=== PATIENT | female | born 1950 | race Caucasian/White ===

== ENCOUNTER → 2016-06-24 | Outpatient (CLI) | payer MEDICARE ==
[~2016-06-24] MED LIST: ADV250INH INH; FOLI1TAB86 PO; FURO20TA PO; IBUP200C PO; NICO21PAT EXT; NYAM10003 EXT; PRED10TA PO; PRIN10TA PO; SPIRIVA INH; TYLE325T5 PO; VITA100T2 PO; VITACHTA PO
--- NOTE | 2016-06-24 10:23 | REP ---
Abdominal aorta ultrasound: Abdominal Aortic Measurements are as follows: Proximal 2.2 cm AP 3.0 cm TRV Renal Artery Level 3.7 cm AP 2.7 cm TRV Mid Aorta 3.8 cm AP 4.5 cm TRV Distal Aorta 3.9 cm AP 8.2 cm TRV R Iliac Artery 1.6 cm AP 1.9 cm TRV L Iliac Artery 1.5 cm AP 2.4 cm TRV The study is technically difficult because of patient body habitus and interference of the acoustic beam by bowel gas. The patient states she has had an endovascular stent placed. This is difficult to visualize because of patient body habitus. The stent was not present on the comparison CT of 09/27/2014. There is an abdominal aortic aneurysm measuring 3.8 cm AP by 4.5 cm transversely and measuring a craniocaudad length of 9.0 cm. Doppler color flow images were not possible because of patient body habitus and interference from bowel gas. 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 Signed by Lan Hawkins MD 06/24/2016 10:14 A
== END ==
LOC: M RAD 08:24
PROVIDERS: ATTEND Family Medicine
DX: I71.4 Abdominal aortic aneurysm, without rupture (principal)

== ENCOUNTER 2016-07-29 09:56 | Inpatient (IN) | payer MEDICARE ==
[~2016-07-29] VITALS: Ht 157.5 cm; Wt 99.8 kg
[2016-07-29] MEDS ORDERED: CLOP75TA2 (10:14)
[2016-07-29] MEDS ORDERED: LISI-538 (10:14)
[2016-07-29] MEDS ORDERED: FURO40TA2 (10:14)
[2016-07-29] MEDS ORDERED: PANT40TA2 (10:14)
[2016-07-29] MEDS ORDERED: ATOR1TAB18 (10:14)
[2016-07-29] MEDS ORDERED: ATEN50TA2 (10:14)
[2016-07-29] MEDS ORDERED: BREO1INH3 (10:14)
[2016-07-29] MEDS ORDERED: ALBU83IN (10:14)
[2016-07-29] MEDS ORDERED: methylPREDNISolone INJ 125 MG/2 ML VIAL (J2930) IV ONE (10:30)
[2016-07-29 10:50] LABS: BASO % 0.3 % (0.0-1.0); EOS # 0.2 K/mm3 (0.0-0.50); EOS % 2.3 % (0.0-3.0); LARGE UNSTAINED CELL # 0.3 K/mm3 (0.0-0.4); LARGE UNSTAINED CELL % 2.7 % (0.0-4.0); LYMPH # 1.4 K/mm3 (1.5-4.5); LYMPH % 11.2 % (24.0-44.0); MEAN CORPUSCULAR HEMOGLOBIN 28.3 pg (27.0-33.0); MEAN CORPUSCULAR HGB CONC 33.3 g/dl (32.0-36.5); MEAN CORPUSCULAR VOLUME 85.1 fl (80.0-96.0); MONO # 0.7 K/mm3 (0.0-0.8); NEUTROPHILS # 7.6 K/mm3 (1.8-7.7); NEUTROPHILS % 76.5 % (36.0-66.0); PLATELET COUNT, AUTOMATED 273 k/mm3 (150-450); RED CELL DISTRIBUTION WIDTH 13.2 % (11.5-14.5); WHITE BLOOD COUNT 9.9 K/mm3 (4.0-10.0)
[2016-07-29] MEDS: IPRATROPIUM 0.5MG/ALBUTEROL 2.5MG INH SOL UD 3ML (DUONEB)(J7620) NEB SCH ×5 (10:50→20:00)
[2016-07-29 10:52] LABS: ABG BASE EXCESS -1.3 (-2.0-2.0); ABG HCO3 22.1 MEQ/L (22.0-26.0); ABG PARTIAL PRESSURE CO2 32.9 mmHg (35.0-45.0); ABG PARTIAL PRESSURE O2 83.8 mmHg (75.0-100.0); ABG STANDARD HCO3 23.3 MEQ/L (22.0-26.0); ABG TOTAL CO2 23.1 MEQ/L (23.0-31.0); ABG pH (ARTERIAL) 7.445 UNITS (7.350-7.450)
[2016-07-29 11:13] LABS: ANION GAP 9 MEQ/L (8-16); BLOOD UREA NITROGEN 31 MG/DL (7-18); CALCIUM LEVEL 9.3 MG/DL (8.8-10.2); CARBON DIOXIDE LEVEL 25 MEQ/L (21-32); CHLORIDE LEVEL 99 MEQ/L (98-107); CREATININE FOR GFR 1.83 MG/DL (0.55-1.02); GLOMERULAR FILTRATION RATE 29.4 (>45); GLUCOSE, FASTING 125 MG/DL (80-110); POTASSIUM SERUM 4.3 MEQ/L (3.5-5.1); SODIUM LEVEL 133 MEQ/L (136-145)
--- NOTE | 2016-07-29 11:13 | REP ---
CHEST, ONE VIEW: HISTORY: Dyspnea. COMPARISON: 03/29/2013. Linear density is present in the right mid lung consistent with atelectasis or scar. The left lung is clear. The cardiac silhouette is enlarged. The pulmonary vasculature is normal in appearance. IMPRESSION: 1. Right mid lung atelectasis or scar. 2. Cardiomegaly. Signed by Shabbir Kahn MD 07/29/2016 12:13 P
[2016-07-29] MEDS ORDERED: BREO1INH3 INH (12:43)
[2016-07-29] MEDS ORDERED: FURO20TA2 PO (12:43)
[2016-07-29] MEDS ORDERED: PLAV75TA38 PO (12:43)
[2016-07-29] MEDS ORDERED: ATEN50TA2 PO (12:43)
[2016-07-29] MEDS ORDERED: PANT40TA2 PO (12:43)
[2016-07-29] MEDS ORDERED: ATOR1TAB18 PO (12:43)
[2016-07-29] MEDS ORDERED: ALB2.5NEB INH (12:43)
[2016-07-29] MEDS ORDERED: LISI-538 PO (12:43)
[2016-07-29] MEDS ORDERED: MAGN250T2 PO (13:10)
[2016-07-29] MEDS ORDERED: ASPI1TAB PO (13:10)
[2016-07-29] MEDS ORDERED: FURO40TA2 PO (13:10)
[2016-07-29] MEDS ORDERED: MUCI600T34 PO (13:10)
[2016-07-29] MEDS ORDERED: IBUPOTC PO (13:15)
[2016-07-29] MEDS ORDERED: TYLE325T5 PO (13:15)
[2016-07-29] MEDS ORDERED: IPRATROPIUM 0.5MG/ALBUTEROL 2.5MG INH SOL UD 3ML (DUONEB)(J7620) NEB PRN (13:15)
[2016-07-29] MEDS ORDERED: ONDANSETRON 4MG/2ML VIAL (J2405) IV PRN (13:15)
[2016-07-29] MEDS ORDERED: FOLI800T PO (13:15)
--- NOTE | 2016-07-29 13:58 | HPEPDOC ---
General Date of Admission 07/29/16 Chief Complaint The patient is a 65-year-old female admitted with a reason for visit of Shortness Of Breath. History of Present Illness 65-year-old female with past medical history of COPD, hypertension, diastolic congestive heart failure, CAD, and GERD presented to ER with a chief complaint of increased shortness of breath, cough productive of yellowish-green sputum, and generalized muscle aches and fatigue over the last 1 week. The patient states that during this time she has been using her inhaler more frequently. In addition, the patient states that she uses 2 L of oxygen via nasal cannula only at night on rare occasions. However, during this time the patient states that she has been using the supplemental oxygen every night. The patient states that she has been unable to walk across the room without getting short of breath. She denies any sick contacts, fevers, chills, chest pain, palpitations, abdominal pain, PND, orthopnea, lower extremity swelling, or any nausea/vomiting /diarrhea. In the ER, a chest x-ray revealed no acute findings. The patient was noted to be saturating in the 80s on room air, and visibly uncomfortable with audible wheezing on auscultation. The hospitalist team was subsequently called for admitting the patient for COPD exacerbation. Home Medications Scheduled Aspirin (Aspirin 81) 81 Mg Tab 81 MG PO DAILY (Reported) Atenolol (Atenolol) 50 Mg Tab 50 MG PO DAILY (Reported) Atorvastatin Calcium (Atorvastatin Calcium) 80 Mg Tab 80 MG PO QHS (Reported) Clopidogrel Bisulfate (Plavix) 75 Mg Tab 75 MG PO DAILY (Reported) Fluticasone/Vilanterol (Breo Ellipta 200-25 Mcg/INH) 1 Inh Inh 1 PUFF INH DAILY (Reported) Folic Acid (Folic Acid) 800 Mcg Tab 800 MCG PO DAILY (Reported) Furosemide (Furosemide) 40 Mg Tab 40 MG PO DAILY (Reported) Guaifenesin (Mucinex) 600 Mg Tab 600 MG PO BID (Reported) Lisinopril (Lisinopril) 20 Mg Tab 20 MG PO QHS (Reported) Magnesium (Magnesium) 250 Mg Tab 250 MG PO DAILY (Reported) Pantoprazole Sodium (Pantoprazole Sodium) 40 Mg Tab 40 MG PO BID (Reported) Scheduled PRN Acetaminophen (Tylenol) 325 Mg Tab 650 MG PO Q4H PRN PRN PAIN (Reported) Albuterol Sulfate (Albuterol Sulfate) 2.5 Mg/0.5 Ml Neb 2.5 MG INH Q4H PRN PRN SHORTNESS OF BREATH (Reported) Ibuprofen (Ibuprofen) 200 Mg Tab 600 MG PO Q6H PRN PRN PAIN (Reported) Allergies Coded Allergies: No Known Allergies (Unverified , 03/24/13) Past Medical History Medical History As noted in HPI. Surgical History None Family History Significant Family History: Other (multiple family members with a history of hypertension, diabetes, dyslipidemia) Social History * Smoker: former Smoker (used to smoke 4 packs a day for 48+ years, quit 3 years ago.) Alcohol: occationally Drugs: denies Lives at home with her significant other, is able to complete activities of daily living independently, ambulates without any assistive devices. Review of Symptoms Other systems 10 point review of systems negative unless otherwise specified in HPI. Physical Examination General Exam: Positive: Alert, Cooperative, No Acute Distress ENT Exam: Positive: Atraumatic, Mucous membr. moist/pink Neck Exam: Negative: JVD Chest Exam: Positive: Diminished, Rhonchi, Wheezing Heart Exam: Positive: Normal S1, Normal S2, Rate Normal Telemetry: Positive: Sinus Abdomen Exam: Positive: Soft, Negative: Tenderness Extremity Exam: Positive: Normal pulses, Negative: Swelling, Tenderness Vital Signs As noted in the EMR. Laboratory Data Labs 24H Laboratory Tests 2 07/29/16 10:31: Anion Gap 9, B-Type Natriuretic Peptide 376H, White Blood Count 9.9, Red Blood Count 3.90L, Hemoglobin 11.0L, Hematocrit 33.1L, Mean Corpuscular Volume 85.1, Mean Corpuscular Hemoglobin 28.3, Mean Corpuscular Hemoglobin Concent 33.3, Red Cell Distribution Width 13.2, Platelet Count 273, Neutrophils (%) (Auto) 76.5H, Lymphocytes (%) (Auto) 11.2L, Monocytes (%) (Auto) 7.0H, Eosinophils (%) (Auto) 2.3, Basophils (%) (Auto) 0.3, Neutrophils # (Auto) 7.6, Lymphocytes # (Auto) 1.4L, Monocytes # (Auto) 0.7, Eosinophils # (Auto) 0.2, Basophils # (Auto) 0.0, Blood Urea Nitrogen 31H, Creatinine 1.83H, Sodium Level 133L, Potassium Level 4.3, Chloride Level 99, Carbon Dioxide Level 25, Calcium Level 9.3, Total Creatine Kinase 173, Creatine Kinase MB 1.3, Creatine Kinase MB Relative Index 0.75, Glomerular Filtration Rate 29.4L, Large Unclassified Cells # 0.3, Large Unclassified Cells % 2.7, Troponin I < 0.02 07/29/16 10:44: Arterial Blood pH 7.445, Arterial Blood Partial Pressure CO2 32.9L, Arterial Blood Partial Pressure O2 83.8, Arterial Blood Total CO2 23.1, Arterial Blood HCO3 22.1, Arterial Blood Base Excess -1.3, Arterial Blood Oxygen Saturation 96.6, Blood Gas Bicarbonate Standard 23.3 CBC/BMP Laboratory Tests 07/29/16 10:31 Calcium Level 9.3, Total Creatine Kinase 173, Red Blood Count 3.90 L, Mean Corpuscular Volume 85.1, Mean Corpuscular Hemoglobin 28.3, Mean Corpuscular Hemoglobin Concent 33.3, Red Cell Distribution Width 13.2, Neutrophils (%) (Auto ) 76.5 H, Lymphocytes (%) (Auto) 11.2 L, Monocytes (%) (Auto) 7.0 H, Eosinophils (%) (Auto) 2.3, Basophils (%) (Auto) 0.3, Neutrophils # (Auto) 7.6, Lymphocytes # (Auto) 1.4 L, Monocytes # (Auto) 0.7, Eosinophils # (Auto) 0.2, Basophils # (Auto) 0.0 Microbiology Microbiology 07/29/16 Influenza Virus Type A Antigen - Final, Complete 07/29/16 Influenza Virus Type B Antigen - Final, Complete Plan / VTE VTE Prophylaxis Ordered?: Yes Plan Plan COPD exacerbation with hypoxia likely secondary viral URI We'll admit to med/surge unit Chest x-ray with no acute findings Solu-Medrol 60 mg every 8 hours ordered Continue nebulizer treatments We do not have Breo-Ellipta on on formulary, we will substitute this with Advair Influenza negative, respiratory panel pending We will continue to monitor the patient's respiratory status and down titrate supplemental oxygen as tolerated Acute kidney injury superimposed on chronic kidney disease It appears that the patient's baseline serum creatinine is between 1.3 and 1.6 Serum creatinine noted to be 1.83 Will withhold nephrotoxins at this time Gentle IV fluid hydration We'll repeat BMP in the a.m. History of diastolic congestive heart failure, CAD The patient actually appears dry clinically today, we will withhold diuretic therapy and gently hydrate We'll also hold lisinopril secondary to NORBERT noted above Continue aspirin, Plavix, statin Atenolol held secondary to COPD exacerbation Hypertension Will withhold lisinopril at this time given NORBERT Will consider adding when necessary Cardizem or hydralazine for systolic blood pressure greater than 150 GERD Continue PPI DVT prophylaxis-heparin subcutaneous The patient will be admitted under the service of the [facility]. MARY LAGOS MD Jul 29, 2016 13:58
[2016-07-29] MEDS ORDERED: NS 500 ML IV SCH (14:00)
[2016-07-29 15:10] VITALS: BP 158/69
[2016-07-29 16:00] VITALS: BP 140/60
[2016-07-29] MEDS: HEPARIN SOD (PORCINE) 5000 UNITS/ML VIAL SC SCH ×2 (16:51→20:32)
[2016-07-29] MEDS: ACETAMINOPHEN TAB 650MG DOSE (2X325MG) PO PRN (16:52)
[2016-07-29] MEDS: methylPREDNISolone INJ 125 MG/2 ML VIAL (J2930) IV SCH (18:36)
[2016-07-29] MEDS: ADVAIR DISKUS 250/50 INH PWD INH SCH (20:19)
[2016-07-29] MEDS: ATORVASTATIN 20 MG TAB PO SCH (20:32)
[2016-07-29] MEDS: PANTOPRAZOLE 40MG TAB (PROTONIX) PO SCH (20:32)
--- NOTE | 2016-07-29 21:03 | ECGEPIP ---
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 Order Number: [id number] Reading MD: Kaleigh Ng Measurements Intervals [place] Rate: 59 P: 17 [place]: 130 QRS: 37 QRSD: 165 T: 143 QT: 478 QTc: 477 Interpretive Statements SINUS BRADYCARDIA LEFT BUNDLE BRANCH BLOCK SIMILAR 09/27/14 Electronically Signed On 07-29-2016 21:03:36 EDT by Kaleigh Ng
[2016-07-29 22:00] VITALS: BP 138/66
[2016-07-30] VITALS (8 sets, daily range): BP systolic 118–154; BP diastolic 56–70; O2SAT 91–93
[2016-07-30] MEDS: IPRATROPIUM 0.5MG/ALBUTEROL 2.5MG INH SOL UD 3ML (DUONEB)(J7620) NEB SCH ×6 (00:06→20:00)
[2016-07-30] MEDS: methylPREDNISolone INJ 125 MG/2 ML VIAL (J2930) IV SCH ×3 (03:58→18:49)
[2016-07-30] MEDS: ACETAMINOPHEN TAB 650MG DOSE (2X325MG) PO PRN ×2 (04:05→21:07)
[2016-07-30] MEDS: HEPARIN SOD (PORCINE) 5000 UNITS/ML VIAL SC SCH ×3 (05:28→21:07)
[2016-07-30 07:04] LABS: MEAN CORPUSCULAR HEMOGLOBIN 28.8 pg (27.0-33.0); MEAN CORPUSCULAR HGB CONC 33.5 g/dl (32.0-36.5); MEAN CORPUSCULAR VOLUME 85.9 fl (80.0-96.0); RED CELL DISTRIBUTION WIDTH 13.1 % (11.5-14.5); WHITE BLOOD COUNT 9.5 K/mm3 (4.0-10.0)
[2016-07-30 07:42] LABS: CALCIUM LEVEL 8.9 MG/DL (8.8-10.2); CREATININE FOR GFR 1.52 MG/DL (0.55-1.02); GLOMERULAR FILTRATION RATE 36.4 (>45)
[2016-07-30] MEDS: ADVAIR DISKUS 250/50 INH PWD INH SCH ×2 (07:55→20:05)
[2016-07-30] MEDS: CLOPIDOGREL 75 MG TAB PO SCH (08:41)
[2016-07-30] MEDS: ASPIRIN 81 MG ENTERIC TAB PO SCH (08:41)
[2016-07-30] MEDS: PANTOPRAZOLE 40MG TAB (PROTONIX) PO SCH ×2 (08:41→21:08)
--- NOTE | 2016-07-30 14:01 | IPN ---
DATE: 07/30/2016 Geneva is seen on [facility]. She feels dramatically better. Less wheezing. Less short of breath. Ambulating without difficulty. PHYSICAL EXAMINATION: VITAL SIGNS: 120/56, pulse of 81, respiratory rate of 28, 89% oxygen saturation on room air. GENERAL APPEARANCE: Visiting with family members. Resting comfortably. Speaking in full sentences. No retractions. HEENT: Unremarkable. LUNGS: Only a few wheezes at the bases. HEART: Regular rhythm. ABDOMEN: Soft, nontender. EXTREMITIES: No peripheral edema. LABORATORY DATA: Look unremarkable. Creatinine is down to 1.5. IMPRESSION: 1. Exacerbation of chronic obstructive pulmonary disease (COPD) secondary to respiratory syncytial virus. Continue nebulized bronchodilator and steroid. No role for antibiotic. 2. Acute kidney injury. Creatinine is down to baseline, which is around 1.3 to 1.6. 3. History of diastolic congestive heart failure (CHF). She is on furosemide 40 mg daily, Lisinopril 20 mg daily at home. These are on hold, probably restart on discharge. 4. Hyperlipidemia. Continue her atorvastatin 80 mg daily. 5. Hypertension. She is on atenolol 50 mg daily, Lisinopril 20 mg daily at home. Both are currently on hold. Blood pressure is remaining well controlled. PLAN: Discharge tomorrow if she remains stable.
[2016-07-30] MEDS: ATORVASTATIN 20 MG TAB PO SCH (21:08)
[2016-07-31] MEDS: IPRATROPIUM 0.5MG/ALBUTEROL 2.5MG INH SOL UD 3ML (DUONEB)(J7620) NEB SCH ×4 (00:18→11:08)
[2016-07-31] MEDS: methylPREDNISolone INJ 125 MG/2 ML VIAL (J2930) IV SCH (03:14)
[2016-07-31] MEDS: HEPARIN SOD (PORCINE) 5000 UNITS/ML VIAL SC SCH (05:41)
[2016-07-31] MEDS: ACETAMINOPHEN TAB 650MG DOSE (2X325MG) PO PRN (05:47)
[2016-07-31 05:48] LABS: MEAN CORPUSCULAR HEMOGLOBIN 29.2 pg (27.0-33.0); MEAN CORPUSCULAR HGB CONC 33.9 g/dl (32.0-36.5); MEAN CORPUSCULAR VOLUME 86.2 fl (80.0-96.0); RED CELL DISTRIBUTION WIDTH 13.1 % (11.5-14.5); WHITE BLOOD COUNT 14.6 K/mm3 (4.0-10.0)
[2016-07-31 06:00] VITALS: BP 145/66
[2016-07-31 06:03] LABS: CALCIUM LEVEL 8.7 MG/DL (8.8-10.2); CREATININE FOR GFR 1.21 MG/DL (0.55-1.02); GLOMERULAR FILTRATION RATE 47.4 (>45); POTASSIUM SERUM 4.1 MEQ/L (3.5-5.1)
[2016-07-31] MEDS: ADVAIR DISKUS 250/50 INH PWD INH SCH (07:13)
[2016-07-31] MEDS: CLOPIDOGREL 75 MG TAB PO SCH (09:27)
[2016-07-31] MEDS: PANTOPRAZOLE 40MG TAB (PROTONIX) PO SCH (09:27)
[2016-07-31] MEDS: ASPIRIN 81 MG ENTERIC TAB PO SCH (09:27)
--- NOTE | 2016-07-31 11:00 | DSES ---
DATE OF ADMISSION: 07/29/2016 DATE OF DISCHARGE: 07/31/2016 PRINCIPAL DIAGNOSIS: Aspiration of chronic obstructive pulmonary disease (COPD) secondary to respiratory syncytial virus. SECONDARY DIAGNOSES: 1. Acute kidney injury. 2. Stage III chronic kidney disease. 3. History of diastolic congestive heart failure. 4. Hyperlipidemia. 5. Hypertension. 6. Morbid obesity. 7. Coronary artery disease. 8. Gastroesophageal reflux disease (GERD). HISTORY: Geneva Chu was admitted with exacerbation of COPD. See details of the history and physical admission. HOSPITAL COURSE: She was admitted to a medical bed. She was treated with intravenous steroid, nebulized bronchodilator. Respiratory panel isolated respiratory syncytial virus. So she was not given any antibiotic. She responded well to prescribed therapy. On day of discharge, she is eager to go home. She is walking in the halls without any difficulty and her examination is unremarkable, summarized below. PHYSICAL EXAMINATION: 145/66, pulse 70, respiratory rate 20, 96% oxygen saturation. Lungs: Clear. Heart: Regular rhythm. Abdomen: Soft, nontender, obese. No peripheral edema. LABORATORY DATA: Today, white count is 14.6 on steroids, hemoglobin 9.8, platelets 314. Sodium 130, potassium 4.1, BUN 38, creatinine 1.2. Creatinine was 1.8 on admission, after hydration it came down 1.2. Lisinopril and furosemide were held during the acute episode of acute kidney injury. DISPOSITION: She was discharged home in improved and stable condition. Her medicines will be continue to be: - albuterol via nebulizer every 4 hours as needed - aspirin 81 mg daily - atenolol 50 mg daily - atorvastatin 80 mg daily - clopidogrel 75 mg daily - Breo 200-25 inhaler one inhalation daily - folic acid 800 mcg daily - magnesium 250 mg daily - Protonix 40 mg twice a day - I am restarting her furosemide 40 mg daily. Her lisinopril 20 mg daily is being held. The decision to restart this deferred to her outpatient appointment. Blood pressure is well controlled at this point without this medication and review of record shows her heart failure is not systolic in nature. So I feel comfortable holding the angiotensin-converting enzyme (ANDREW) inhibitor for now. She received Depo-Medrol 80 mg intramuscular (IM) on the morning of discharge. It will provide her a steroid coverage for the next 5-7 days. She will followup with Dr. Pal Linder at the [facility] office in the coming week. No added salt, low fat, cholesterol diet advised. Activity as tolerated.
[2016-07-31] MEDS ORDERED: methylPREDNISolone 80MG/ML SUSP 1ML VIAL (J1040) IM ONE (12:00)
== END 2016-07-31 12:50 | disposition home or self-care (01) | DRG 191 ==
LOC: M ED 11:46 → M ED INP 13:08 → M MS5PR 16:02
PROVIDERS: ADMIT Internal Medicine; ATTEND Family Medicine
DX: J44.1 Chronic obstructive pulmonary disease with (acute) exacerbation (principal); I50.32 Chronic diastolic (congestive) heart failure; N17.9 Acute kidney failure, unspecified; I13.0 Hypertensive heart and chronic kidney disease with heart failure and stage 1 through stage 4 chronic kidney disease, or unspecified chronic kidney disease; Z68.41 Body mass index [BMI] 40.0-44.9, adult; E78.5 Hyperlipidemia, unspecified; N18.3 Chronic kidney disease, stage 3 (moderate); B97.4 Respiratory syncytial virus as the cause of diseases classified elsewhere; E66.01 Morbid (severe) obesity due to excess calories; I25.10 Atherosclerotic heart disease of native coronary artery without angina pectoris; K21.9 Gastro-esophageal reflux disease without esophagitis; Z79.82 Long term (current) use of aspirin; Z79.899 Other long term (current) drug therapy; Z87.891 Personal history of nicotine dependence; Z79.51 Long term (current) use of inhaled steroids

== ENCOUNTER 2016-08-15 11:31 | Inpatient (IN) | payer MEDICARE ==
[~2016-08-15] VITALS: Ht 154.9 cm; Wt 96.1 kg
[~2016-08-15 11:31] MED LIST changes: +ALB2.5NEB INH; +ALBU83IN; +ASPI1TAB PO; +ATEN50TA2; +ATEN50TA2 PO; +ATOR1TAB18; +ATOR1TAB18 PO; +BREO1INH3; +BREO1INH3 INH; +CLOP75TA2; +FOLI800T PO; +FURO20TA2 PO; +FURO40TA2; +FURO40TA2 PO; +IBUPOTC PO; +LISI-538; +LISI-538 PO; +MAGN250T2 PO; +MUCI600T34 PO; +PANT40TA2; +PANT40TA2 PO; +PLAV75TA38 PO
[2016-08-15] MEDS ORDERED: LISI-538 PO (12:21)
[2016-08-15 12:38] LABS: BASO % 0.2 % (0.0-1.0); EOS % 0.2 % (0.0-3.0); LARGE UNSTAINED CELL # 0.2 K/mm3 (0.0-0.4); LARGE UNSTAINED CELL % 1.6 % (0.0-4.0); LYMPH # 0.7 K/mm3 (1.5-4.5); LYMPH % 4.4 % (24.0-44.0); MEAN CORPUSCULAR HEMOGLOBIN 28.5 pg (27.0-33.0); MEAN CORPUSCULAR HGB CONC 32.8 g/dl (32.0-36.5); MONO # 0.6 K/mm3 (0.0-0.8); MONO % 5.4 % (0.0-5.0); NEUTROPHILS # 9.9 K/mm3 (1.8-7.7); NEUTROPHILS % 88.2 % (36.0-66.0); PLATELET COUNT, AUTOMATED 236 k/mm3 (150-450); RED CELL DISTRIBUTION WIDTH 13.7 % (11.5-14.5); WHITE BLOOD COUNT 11.2 K/mm3 (4.0-10.0)
[2016-08-15 12:40] LABS: CALCIUM LEVEL 9.3 MG/DL (8.8-10.2); CREATININE FOR GFR 1.05 MG/DL (0.55-1.02); GLOMERULAR FILTRATION RATE 55.8 (>45); POTASSIUM SERUM 3.9 MEQ/L (3.5-5.1)
[2016-08-15] MEDS ORDERED: methylPREDNISolone INJ 125 MG/2 ML VIAL (J2930) IV ONE (12:45)
[2016-08-15] MEDS ORDERED: IPRATROPIUM 0.5MG/ALBUTEROL 2.5MG INH SOL UD 3ML (DUONEB)(J7620) NEB ONE (12:45)
[2016-08-15 12:51] LABS: ABG BASE EXCESS 1.8 (-2.0-2.0); ABG HCO3 23.9 MEQ/L (22.0-26.0); ABG PARTIAL PRESSURE CO2 29.5 mmHg (35.0-45.0); ABG PARTIAL PRESSURE O2 84.1 mmHg (75.0-100.0); ABG STANDARD HCO3 26.1 MEQ/L (22.0-26.0); ABG TOTAL CO2 24.8 MEQ/L (23.0-31.0); ABG pH (ARTERIAL) 7.526 UNITS (7.350-7.450)
[2016-08-15] MEDS ORDERED: ONDANSETRON 4MG/2ML VIAL (J2405) IV ONE (13:15)
[2016-08-15] MEDS ORDERED: FUROSEMIDE 100 MG/10 ML VIAL (J1940) IV ONE (13:15)
--- NOTE | 2016-08-15 14:18 | REP ---
AP PORTABLE CHEST: 08/15/2016. Clinical history: Dyspnea. Cough. Comparison: 07/29/2016, 03/29/2013. Findings: Lungs are hyperinflated. There is underlying fibrosis and COPD heavier in the bases. Some minor lateral pleural thickening in the lower chest bilaterally. Superimposed patchy atelectasis or infiltrate in the left greater than right base. No gross effusion. Some cardiomegaly suggested. There is no pulmonary edema but there is some venous hypertension with sharply defined vessel margins in the upper lung zone. The aorta is normal for age and has a few calcifications. No aneurysm. Airway intact. Hilar and mediastinal contours unremarkable. Impression: 1. Cardiomegaly with some venous hypertension. No pulmonary edema or pleural effusion. 2. Underlying fibrosis, COPD and some heavier bibasilar fibrotic changes with possible superimposed patchy atelectasis or infiltrates. No gross effusion. Signed by Evan Singh MD 08/15/2016 07:32 P
[2016-08-15] MEDS ORDERED: DOXYCYCLINE HYCLATE 100 MG in D5W MINI-BAG PLUS 100 ML IV ONE (14:30)
[2016-08-15] MEDS ORDERED: LOMO2.5T PO (15:02)
[2016-08-15] MEDS ORDERED: VITMTA PO (15:02)
[2016-08-15] MEDS ORDERED: NYST100024 TOP (15:02)
[2016-08-15] MEDS ORDERED: SPIR1CAP INH (15:02)
[2016-08-15] MEDS ORDERED: IPRATROPIUM 0.5MG/ALBUTEROL 2.5MG INH SOL UD 3ML (DUONEB)(J7620) NEB PRN (15:30)
[2016-08-15] MEDS ORDERED: ONDANSETRON 4 MG TAB (S0181) PO PRN (15:30)
[2016-08-15] MEDS ORDERED: ACETAMINOPHEN TAB 650MG DOSE (2X325MG) PO PRN (15:30)
[2016-08-15 15:37] LABS: ALBUMIN 3.9 GM/DL (3.2-5.2); ALBUMIN/GLOBULIN RATIO 1.05 (1.00-1.93); ALKALINE PHOSPHATASE 102 U/L (45-117); ALT/SGPT 26 U/L (12-78); AST/SGOT 15 U/L (15-37); BILIRUBIN,DIRECT 0.1 MG/DL (0.0-0.2); BILIRUBIN,TOTAL 0.4 MG/DL (0.2-1.0); TOTAL PROTEIN 7.6 GM/DL (6.4-8.2)
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
[2016-08-15 17:19] VITALS: BP 183/81
[2016-08-15] MEDS: CLOPIDOGREL 75 MG TAB PO SCH (17:31)
[2016-08-15] MEDS: ASPIRIN 81 MG ENTERIC TAB PO SCH (17:31)
[2016-08-15] MEDS: LevoFLOXacin 750 MG TABLET PO SCH (17:32)
[2016-08-15] MEDS: ATENOLOL 50 MG TAB PO SCH (17:32)
[2016-08-15 17:42] VITALS: BP 156/72
[2016-08-15] MEDS: ADVAIR DISKUS 500/50 INH PWD INH SCH (20:07)
[2016-08-15] MEDS: SENOKOT S TAB PO SCH (20:09)
[2016-08-15] MEDS: ATORVASTATIN 20 MG TAB PO SCH (20:09)
[2016-08-15] MEDS: PANTOPRAZOLE 40MG TAB (PROTONIX) PO SCH (20:09)
[2016-08-15] MEDS ORDERED: LISINOPRIL 20 MG TAB PO SCH (21:00)
--- NOTE | 2016-08-15 21:10 | ECGEPIP ---
Stationary ECG Study [facility] - ED Test Date: 2016-08-15 Pat Name: MICHELLE BISHOP Department: Room: - Gender: F [employer]: colton : 1950 Requested By: Satish Sánchez Order Number: [id number] Reading MD: Kaleigh Ng Measurements Intervals [place] Rate: 103 P: 67 VA: 152 QRS: 32 QRSD: 164 T: 68 QT: 381 QTc: 499 Interpretive Statements SINUS TACHYCARDIA LEFT BUNDLE BRANCH BLOCK INCREASED RATE 07/29/16 Electronically Signed On 08-15-2016 21:10:17 EDT by Kaleigh Ng
[2016-08-15 22:00] VITALS: BP 164/75
[2016-08-15] MEDS ORDERED: HEPARIN SOD (PORCINE) 5000 UNITS/ML VIAL SC SCH (22:00)
[2016-08-16 06:00] VITALS: BP 177/71
[2016-08-16 07:08] LABS: BASO % 0.2 % (0.0-1.0); EOS % 0.3 % (0.0-3.0); LARGE UNSTAINED CELL # 0.2 K/mm3 (0.0-0.4); LARGE UNSTAINED CELL % 2.6 % (0.0-4.0); LYMPH # 0.9 K/mm3 (1.5-4.5); MEAN CORPUSCULAR HEMOGLOBIN 28.1 pg (27.0-33.0); MEAN CORPUSCULAR HGB CONC 32.6 g/dl (32.0-36.5); MEAN CORPUSCULAR VOLUME 86.3 fl (80.0-96.0); MONO # 0.7 K/mm3 (0.0-0.8); MONO % 9.3 % (0.0-5.0); NEUTROPHILS # 5.5 K/mm3 (1.8-7.7); NEUTROPHILS % 77.6 % (36.0-66.0); PLATELET COUNT, AUTOMATED 224 k/mm3 (150-450); RED CELL DISTRIBUTION WIDTH 13.5 % (11.5-14.5); WHITE BLOOD COUNT 7.1 K/mm3 (4.0-10.0)
[2016-08-16 07:24] LABS: CALCIUM LEVEL 9.5 MG/DL (8.8-10.2); CREATININE FOR GFR 1.27 MG/DL (0.55-1.02); GLOMERULAR FILTRATION RATE 44.8 (>45)
--- NOTE | 2016-08-16 07:39 | REP ---
CT BRAIN WITHOUT CONTRAST: 08/15/2016. Clinical history: Headache. Findings: No prior study. The soft tissue and bone windows for each slice level are provided. Ventricles are midline, symmetric and without dilatation or displacement. The hammer-white junction differentiation is well maintained. The cortical stripe is preserved. There is only minimal atrophy which is age appropriate. Basal ganglia were symmetric. Hammer-white junction differentiation shows only minimal heterogeneous low attenuation white matter which may reflect some mild chronic small vessel ischemic changes. Cortical stripe preserved. There is no vascular territory infarct, intracranial hemorrhage, mass, mass effect or edema. Basal cisterns were intact. Skull base bone windows show mastoids partially opacified on the right which may reflect some mastoiditis. There is some ethmoid sinus mucosal thickening bilaterally. The remainder of visualized sinuses were intact. The skull base and calvarium show no fracture or focal lesion. Impression: 1. Some minor ethmoid sinus mucosal disease and some mucosal thickening in the right mastoid also noted. 2. The calvarium and skull base otherwise intact and there is no intracranial hemorrhage, infarct, edema, mass or fluid collection. Signed by Evan Singh MD 08/16/2016 07:47 A
[2016-08-16] MEDS: TIOTROPIUM INHALER/CAPSULE (SPIRIVA) INH SCH (08:49)
[2016-08-16] MEDS: ADVAIR DISKUS 500/50 INH PWD INH SCH ×2 (08:49→20:36)
[2016-08-16] MEDS: predniSONE 20 MG TAB PO SCH (09:09)
[2016-08-16] MEDS: ATENOLOL 50 MG TAB PO SCH (09:10)
[2016-08-16] MEDS: ASPIRIN 81 MG ENTERIC TAB PO SCH (09:10)
[2016-08-16] MEDS: CLOPIDOGREL 75 MG TAB PO SCH (09:10)
[2016-08-16] MEDS: SENOKOT S TAB PO SCH ×3 (09:10→21:42)
[2016-08-16] MEDS: PANTOPRAZOLE 40MG TAB (PROTONIX) PO SCH ×2 (09:10→21:43)
[2016-08-16] MEDS: FUROSEMIDE 40 MG TAB PO SCH (09:11)
[2016-08-16] MEDS: PERCOCET 5MG/325MG TAB PO PRN ×2 (11:00→15:33)
--- NOTE | 2016-08-16 11:57 | IPNPDOC ---
Subjective Date Seen The patient was seen on 08/16/16. Subjective Chief Complaint/HPI The patient is a 65-year-old female admitted with a reason for visit of Acute Copd W/Respiratory Failure. Events since last encounter daughter's at bedside and have multiple concerns: 1. severe GILL for last 4 days. + sinus thickening on CT head (non-contrast) 2. MS changes. states improved since hospitalization yet seems vague which is a change 3. abdominal pain, nausea and bloating. patient unable to verbalize last BM. States hx of chronic diarrhea in the past. Constitutional: Denies: Chills, Fever, Night Sweats ENT: Reports: Head Aches, Sinus Congestion, Denies: Dysphagia, Ear Pain Pulmonary: Reports: Cough, Dyspnea Cardiovascular: Denies: Chest Pain, Orthopnea, Palpitations Gastrointestinal: Reports: Abdominal Pain, Nausea, Denies: Vomiting Genitourinary: Denies: Dysuria, Frequency Neurological: Reports: Confusion Psych: Reports: Memory Issues, Mood Normal, Denies: Depression Objective Physical Examination General Exam: Positive: Alert, Cooperative, No Acute Distress Eye Exam: Positive: Conjunctiva & lids normal, PERRLA ENT Exam: Positive: Atraumatic, Mucous membr. moist/pink, Other ENT (nasal cannula in place on 3 L) Neck Exam: Positive: Supple, Negative: JVD, thyromegaly Chest Exam: Positive: Diminished, Normal air movement, Wheezing, Negative: Rales, Rhonchi Heart Exam: Positive: Murmurs (2/6 systolic ejection murmur), Normal S1, Normal S2, Regular Rhythm, Tachycardic Telemetry: Positive: No significant arrhythmia, Other Telemetry: (reviewed EKG which showed persistent left bundle branch block, unchanged from previous, no acute changes) Abdomen Exam: Positive: Normal bowel sounds, Soft, Negative: Hepatospenomegaly, Tenderness Extremity Exam: Positive: Clubbing, Normal pulses, Negative: Cyanosis, Edema Skin Exam: Positive: Nl turgor and temperature, Negative: Rash Psych Exam: Positive: Mental status NL, Oriented x 3 Assessment /Plan Problems (1) Acute chronic obstructive pulmonary disease with respiratory failure Status: Acute Problem Text: Acute symptoms of likely viral syndrome. Flu swab is pending. Chest x-ray consistent with viral pneumonia, although focal infiltrates could not be excluded. Given patient's extensive COPD, will treat with Levaquin and prednisone for acute exacerbation of chronic respiratory failure. Baseline home oxygen is 2 L. Patient follows with abdominal GI outpatient. Currently on Breo, Spiriva, and nebulizers, in addition to home oxygen. Breo unavailable, so will order high-dose Advair. -Admit to medicine -Continuous pulse oximetry for acute on chronic hypoxemic respiratory failure and likely JUDY -Prednisone 60 mg daily -Levaquin 750 g daily; automated GFR calculation is less than 50 based on creatinine, however based on patient's body mass index I think she is likely well above 50, so will not renally dose Levaquin -Follow up flu swab - Advair Diskus 500/50, Spiriva, when necessary nebs 08/16/2016: oxygen saturations improving. Desaturates to 88% with conversation. Continue with Levaquin and prednisone. (2) Congestive heart failure Status: Chronic Problem Text: Patient was initially treated with Lasix in the ER. However, BNP is essentially a patient's baseline, and chest x-ray does not show any appreciable pulmonary vascular congestion. Patient does have a history of valvular heart disease, with mitral regurgitation, pulmonary hypertension, and likely obstructive sleep apnea. EKG shows stable left bundle branch block with no acute changes. Outpatient records note EF of 30% (3) Coronary artery disease Status: Chronic Problem Text: Patient has a history of coronary artery disease status post stenting. She has a stable left bundle branch block on EKG, no acute changes. -Continue aspirin and Plavix; will hold on additional anticoagulation due to a dual antiplatelet therapy -Continue Lipitor 80 mg daily (4) Mitral regurgitation Status: Chronic Problem Text: History of moderate mitral valve regurgitation (5) Former very heavy cigarette smoker (more than 40 per day) Status: Chronic Problem Text: Greater than [id number] smoking history. Patient is now a nonsmoker (6) Obesity (BMI 30-39.9) Status: Chronic Response to Treatment: Improving Problem Text: Previous PMI was over 40, patient has been losing some weight intentionally over the last several months. (7) Hypertension Status: Chronic Problem Text: Blood pressure uncontrolled with Max 186/78. c/o GILL and feeling poorly with altered mentation. Will increase Lisinopril to 40 mg po daily. HR stable: 60s -Atenolol 50 mg daily, furosemide 40 mg daily, (8) Elevated fasting glucose Status: Acute Problem Text: Formerly elevated fasting glucose. Obesity. -Recheck A1c (9) Hiatal hernia with GERD Status: Acute Problem Text: Patient is on twice a day PPI due to hiatal hernia with severe reflux. -Continue twice-daily Protonix (10) JUDY (obstructive sleep apnea) Status: Acute Problem Text: History of symptoms suggestive of severe obstructive sleep apnea. Patient was scheduled to have sleep study done on the fifth, however there is no report of this being done. -Follow up sleep study again outpatient (11) Head ache Status: Acute Problem Text: ? cause. Sinus thickening: added on Flonase. May be HTN related: increased Lisinopril. + MS changes also, consider MRI/MRA head and neck given hx of CAD. Plan/VTE VTE Prophylaxis Ordered?: Yes (2 platelet therapy) Plan Attending note: I saw and evaluated the patient, and agree with the plan of care as discussed and documented above by Lizzy Winchester VS, I&O, 24H, Fishbone Vital Signs/I&O Vital Signs Date Time Temp Pulse Resp B/P Pulse Ox O2 Delivery O2 Flow Rate FiO2 08/16/16 11:45 14 08/16/16 09:10 61 177/71 08/16/16 06:00 96.6 97 Room Air 08/15/16 20:00 2.0 I&O- Last 24 Hours up to 6 AM 08/16/16 06:00 Intake Total 360 ml Output Total 400 ml Balance -40 ml Laboratory Data 24H LABS Laboratory Tests 2 08/15/16 12:29: Lactic Acid Level 1.4 08/15/16 12:35: Arterial Blood pH 7.526H, Arterial Blood Partial Pressure CO2 29.5L, Arterial Blood Partial Pressure O2 84.1, Arterial Blood Total CO2 24.8, Arterial Blood HCO3 23.9, Arterial Blood Base Excess 1.8, Arterial Blood Oxygen Saturation 96.4 , Blood Gas Bicarbonate Standard 26.1H 08/15/16 14:55: Acetaminophen Level < 2.0L, Aspartate Amino Transf (AST/SGOT) 15, Alanine Aminotransferase (ALT/SGPT) 26, Alkaline Phosphatase 102, Total Bilirubin 0.4, Direct Bilirubin 0.1, Albumin 3.9, Albumin/Globulin Ratio 1.05, Salicylates Level 1.7L, Total Protein 7.6 08/15/16 16:46: Estimated Mean Plasma Glucose 157H, Hemoglobin A1c 7.1H 08/15/16 17:19: Bedside Glucose (Misc Panel) 206H 08/16/16 06:34: Anion Gap 8, White Blood Count 7.1, Red Blood Count 4.03, Hemoglobin 11.3L, Hematocrit 34.7L, Mean Corpuscular Volume 86.3, Mean Corpuscular Hemoglobin 28.1 , Mean Corpuscular Hemoglobin Concent 32.6, Red Cell Distribution Width 13.5, Platelet Count 224, Neutrophils (%) (Auto) 77.6H, Lymphocytes (%) (Auto) 10.0L, Monocytes (%) (Auto) 9.3H, Eosinophils (%) (Auto) 0.3, Basophils (%) (Auto) 0.2 , Neutrophils # (Auto) 5.5, Lymphocytes # (Auto) 0.9L, Monocytes # (Auto) 0.7, Eosinophils # (Auto) 0.0, Basophils # (Auto) 0.0, Blood Urea Nitrogen 21H, Creatinine 1.27H, Sodium Level 136, Potassium Level 4.0, Chloride Level 97L, Carbon Dioxide Level 31, Calcium Level 9.5, Glomerular Filtration Rate 44.8L, Large Unclassified Cells # 0.2, Large Unclassified Cells % 2.6 CBC/BMP Laboratory Tests 08/16/16 06:34 Calcium Level 9.5, Red Blood Count 4.03, Mean Corpuscular Volume 86.3, Mean Corpuscular Hemoglobin 28.1, Mean Corpuscular Hemoglobin Concent 32.6, Red Cell Distribution Width 13.5, Neutrophils (%) (Auto) 77.6 H, Lymphocytes (%) (Auto) 10.0 L, Monocytes (%) (Auto) 9.3 H, Eosinophils (%) (Auto) 0.3, Basophils (%) ( Auto) 0.2, Neutrophils # (Auto) 5.5, Lymphocytes # (Auto) 0.9 L, Monocytes # ( Auto) 0.7, Eosinophils # (Auto) 0.0, Basophils # (Auto) 0.0 Microbiology Microbiology 08/15/16 Blood Culture, Received Pending 08/15/16 Influenza Virus Type A Antigen - Final, Complete 08/15/16 Influenza Virus Type B Antigen - Final, Complete Cely Winchester CREDIT INTERN Aug 16, 2016 11:57 MONY LEDEZMA MD Aug 17, 2016 19:56
[2016-08-16] MEDS: FLUTICASONE PROP 0.05% NASAL SPRAY 16 GM (FLONASE) SCH ×2 (12:44→17:12)
[2016-08-16 14:00] VITALS: BP 102/47
[2016-08-16] MEDS ORDERED: FIORICET TAB PO ONE (14:00)
--- NOTE | 2016-08-16 15:38 | REP ---
Abdominal pain and nausea. COMPARISON: None. FINDINGS: KUB shows the intestinal gas pattern to be nonspecific. The organ silhouettes insofar as delineated are unremarkable. There is no evidence of free intraperitoneal air. IMPRESSION: Nonspecific. Signed by Soy Davis DO 08/16/2016 04:54 P
--- NOTE | 2016-08-16 17:06 | REP ---
MR angiography the brain without contrast: History: Headache and confusion. Technique: 3-D [id number] MR angiography of the brain is acquired in the usual fashion and maximal intensity projection images were generated in rotational format about the vertical and horizontal axes. In addition, source axial T1-weighted images are viewed in cine mode. MR angiographic findings: The distal vertebral arteries are patent , left larger than right. Basilar artery is a little tortuous but widely patent. The posterior cerebral and superior cerebellar vessels are normal and symmetric. The distal internal carotid arteries are unremarkable. Anterior and middle cerebral arteries appear intact. There is no visible hull aneurysm or arteriovenous malformation. Impression: Unremarkable MR angiography the brain. Signed by Wyatt Landis MD 08/16/2016 04:58 P
[2016-08-16] MEDS: LevoFLOXacin 750 MG TABLET PO SCH (17:12)
--- NOTE | 2016-08-16 17:24 | REP ---
MRI brain without contrast: History: Altered mental status, headache. Comparison CT study 08/15/2016. Technique: Axial and sagittal imaging planes are utilized for T1 and T2-weighted scans. Sequences include spin-echo, fast spin echo, FLAIR, and diffusion weighted sequences. MRI findings: No bony calvarial lesion is seen. Craniocervical junction and upper cervical cord are normal in appearance. There are mild mucosal changes in the ethmoids sphenoid and maxillary sinuses. No intraorbital abnormality is seen. There is mild diffuse cerebral atrophy. There is no evidence of intracranial hemorrhage. Diffusion weighted scans show no evidence to suggest acute ischemia. There is no evidence of infarction, extra-axial fluid collection, mass or midline shift or hydrocephalus. Impression: Mild mucosal paranasal sinus changes. No intracranial lesion seen. Signed by Wyatt Landis MD 08/16/2016 07:36 P
--- NOTE | 2016-08-16 17:35 | REP ---
MR angiography of the carotids without and with IV gadolinium: History: Headache and confusion. Weakness. Gadolinium enhancement dose: 12.5 mL, half-dose protocol, intravenous ProHance is administered. MR technique: 2-D [id number] and 3-D post-gadolinium enhanced MR angiography of the neck is acquired in the usual fashion. Maximum intensity projection images were generated and viewed rotational. Source coronal and axial images are viewed. MR angiographic findings: The thoracic aorta is unremarkable. Great vessel origins are somewhat tortuous but intact. The common carotid arteries are unremarkable bilaterally. Vertebral arteries are patent, left a little larger than the right. 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 On the left there is atherosclerotic plaquing involving the bulb and proximal ICA but no significant stenosis is seen. There is some stenosis of the proximal external carotid artery on the left side. Less than 30% narrowing is seen in the proximal ICA on the left. On the right, there is moderate atherosclerotic plaquing in the distal bulb proximal ICA and to a lesser extent proximally ECA. There is 50% narrowing in the proximal ICA at its origin. No high-grade stenosis is seen. The distal internal carotid arteries are unremarkable bilaterally. Impression: Bilateral ICA plaquing. 50% narrowing of the right ICA and less than 30% narrowing of the left proximal ICA. Signed by Wyatt Landis MD 08/16/2016 07:36 P
[2016-08-16] MEDS: ONDANSETRON 4 MG TAB (S0181) PO PRN ×2 (17:44→21:47)
--- NOTE | 2016-08-16 18:00 | ECGEPIP ---
Stationary ECG Study [facility] Test Date: 2016-08-16 Pat Name: MICHELLE BISHOP Department: Room: [place] [address] Gender: F Health Physicist: : 1950 Requested By: Cely NUNES Order Number: [id number] Reading MD: Edison Cooper Measurements Intervals [place] Rate: 62 P: 60 CT: 143 QRS: 60 QRSD: 166 T: 207 QT: 478 QTc: 487 Interpretive Statements SINUS RHYTHM LEFT BUNDLE BRANCH BLOCK Slower rate but otherwise unchanged from 08/15/16. Electronically Signed On 08-16-2016 18:00:14 EDT by Edison Cooper
[2016-08-16] MEDS: ATORVASTATIN 20 MG TAB PO SCH (21:40)
[2016-08-16] MEDS: FIORICET TAB PO PRN (21:42)
[2016-08-16] MEDS: LISINOPRIL 40 MG TAB PO SCH (21:42)
[2016-08-16 22:00] VITALS: BP 114/56
[2016-08-17] MEDS: ONDANSETRON 4 MG TAB (S0181) PO PRN ×3 (04:28→17:55)
[2016-08-17] MEDS: FIORICET TAB PO PRN ×3 (04:30→22:22)
[2016-08-17 06:00] VITALS: BP 122/57
[2016-08-17 06:56] LABS: BASO % 0.1 % (0.0-1.0); EOS % 0.6 % (0.0-3.0); LARGE UNSTAINED CELL # 0.2 K/mm3 (0.0-0.4); LARGE UNSTAINED CELL % 2.6 % (0.0-4.0); MEAN CORPUSCULAR HEMOGLOBIN 27.6 pg (27.0-33.0); MEAN CORPUSCULAR HGB CONC 32.3 g/dl (32.0-36.5); MEAN CORPUSCULAR VOLUME 85.3 fl (80.0-96.0); MONO # 0.6 K/mm3 (0.0-0.8); MONO % 8.1 % (0.0-5.0); NEUTROPHILS # 5.2 K/mm3 (1.8-7.7); NEUTROPHILS % 76.5 % (36.0-66.0); PLATELET COUNT, AUTOMATED 216 k/mm3 (150-450); RED CELL DISTRIBUTION WIDTH 13.4 % (11.5-14.5); WHITE BLOOD COUNT 6.8 K/mm3 (4.0-10.0)
[2016-08-17 07:23] LABS: CREATININE FOR GFR 1.44 MG/DL (0.55-1.02); GLOMERULAR FILTRATION RATE 38.8 (>45); POTASSIUM SERUM 4.1 MEQ/L (3.5-5.1)
[2016-08-17] MEDS: TIOTROPIUM INHALER/CAPSULE (SPIRIVA) INH SCH (08:04)
[2016-08-17] MEDS: ADVAIR DISKUS 500/50 INH PWD INH SCH ×2 (08:04→20:35)
[2016-08-17] MEDS: predniSONE 20 MG TAB PO SCH (10:09)
[2016-08-17] MEDS: SENOKOT S TAB PO SCH ×2 (10:09→22:21)
[2016-08-17] MEDS: PANTOPRAZOLE 40MG TAB (PROTONIX) PO SCH ×2 (10:09→22:22)
[2016-08-17] MEDS: ASPIRIN 81 MG ENTERIC TAB PO SCH (10:10)
[2016-08-17] MEDS: CLOPIDOGREL 75 MG TAB PO SCH (10:10)
[2016-08-17] MEDS: PERCOCET 5MG/325MG TAB PO PRN ×3 (10:10→22:22)
[2016-08-17] MEDS: ATENOLOL 50 MG TAB PO SCH (10:10)
[2016-08-17] MEDS: FUROSEMIDE 40 MG TAB PO SCH (10:11)
[2016-08-17] MEDS: FLUTICASONE PROP 0.05% NASAL SPRAY 16 GM (FLONASE) SCH ×2 (10:11→22:23)
--- NOTE | 2016-08-17 10:12 | IPNPDOC ---
Subjective Date Seen The patient was seen on 08/17/16. Subjective Chief Complaint/HPI The patient is a 65-year-old female admitted with a reason for visit of Acute Copd W/Respiratory Failure. Events since last encounter Patient is doing well today. She reports improved breathing. Her headache is improving. She denies any other complaints or concerns. Constitutional: Denies: Chills, Fever, Malaise ENT: Reports: Head Aches (improving) Cardiovascular: Denies: Chest Pain, Orthopnea, Palpitations Gastrointestinal: Denies: Abdominal Pain, Nausea, Vomiting Genitourinary: Denies: Dysuria Other systems 10 point review systems otherwise negative Objective Physical Examination General Exam: Positive: Alert, Cooperative, No Acute Distress Eye Exam: Positive: Conjunctiva & lids normal, PERRLA ENT Exam: Positive: Atraumatic, Mucous membr. moist/pink, Other ENT (nasal cannula in place on 3 L) Neck Exam: Positive: Supple, Negative: JVD, thyromegaly Chest Exam: Positive: Diminished, Normal air movement, Wheezing, Negative: Rales, Rhonchi Heart Exam: Positive: Murmurs (2/6 systolic ejection murmur), Normal S1, Normal S2, Regular Rhythm, Tachycardic Telemetry: Positive: No significant arrhythmia, Other Telemetry: (reviewed EKG which showed persistent left bundle branch block, unchanged from previous, no acute changes) Abdomen Exam: Positive: Normal bowel sounds, Soft, Negative: Hepatospenomegaly, Tenderness Extremity Exam: Positive: Clubbing, Normal pulses, Negative: Cyanosis, Edema Skin Exam: Positive: Nl turgor and temperature, Negative: Rash Psych Exam: Positive: Mental status NL, Oriented x 3 Assessment /Plan Problems (1) NORBERT (acute kidney injury) Status: Acute Problem Text: Patient's renal function is worsening, so we'll watch the patient for another day. Patient has not been taking her normal by mouth intake. BNP is at patient's baseline. No rales on exam -Normal saline bolus -Hold Lasix (2) Acute chronic obstructive pulmonary disease with respiratory failure Status: Acute Problem Text: Acute symptoms of likely viral syndrome. Flu swab is pending. Chest x-ray consistent with viral pneumonia, although focal infiltrates could not be excluded. Given patient's extensive COPD, will treat with Levaquin and prednisone for acute exacerbation of chronic respiratory failure. Baseline home oxygen is 2 L. Patient follows with abdominal GI outpatient. Currently on Breo, Spiriva, and nebulizers, in addition to home oxygen. Breo unavailable, so will order high-dose Advair. -Admit to medicine -Continuous pulse oximetry for acute on chronic hypoxemic respiratory failure and likely JUDY -Prednisone 60 mg daily -Levaquin 750 g daily; automated GFR calculation is less than 50 based on creatinine, however based on patient's body mass index I think she is likely well above 50, so will not renally dose Levaquin -Follow up flu swab - Advair Diskus 500/50, Spiriva, when necessary nebs 08/16/2016: oxygen saturations improving. Desaturates to 88% with conversation. Continue with Levaquin and prednisone. (3) Congestive heart failure Status: Chronic Problem Text: Patient was initially treated with Lasix in the ER. However, BNP is essentially a patient's baseline, and chest x-ray does not show any appreciable pulmonary vascular congestion. Patient does have a history of valvular heart disease, with mitral regurgitation, pulmonary hypertension, and likely obstructive sleep apnea. EKG shows stable left bundle branch block with no acute changes. Outpatient records note EF of 30% (4) Coronary artery disease Status: Chronic Problem Text: Patient has a history of coronary artery disease status post stenting. She has a stable left bundle branch block on EKG, no acute changes. -Continue aspirin and Plavix; will hold on additional anticoagulation due to a dual antiplatelet therapy -Continue Lipitor 80 mg daily (5) Mitral regurgitation Status: Chronic Problem Text: History of moderate mitral valve regurgitation (6) Former very heavy cigarette smoker (more than 40 per day) Status: Chronic Problem Text: Greater than [id number] smoking history. Patient is now a nonsmoker (7) Obesity (BMI 30-39.9) Status: Chronic Response to Treatment: Improving Problem Text: Previous PMI was over 40, patient has been losing some weight intentionally over the last several months. (8) Hypertension Status: Chronic Problem Text: Blood pressure uncontrolled with Max 186/78. c/o GILL and feeling poorly with altered mentation. Will increase Lisinopril to 40 mg po daily. HR stable: 60s -Atenolol 50 mg daily, furosemide 40 mg daily, (9) Elevated fasting glucose Status: Acute Problem Text: Formerly elevated fasting glucose. Obesity. -Recheck A1c (10) Hiatal hernia with GERD Status: Acute Problem Text: Patient is on twice a day PPI due to hiatal hernia with severe reflux. -Continue twice-daily Protonix (11) JUDY (obstructive sleep apnea) Status: Acute Problem Text: History of symptoms suggestive of severe obstructive sleep apnea. Patient was scheduled to have sleep study done on the fifth, however there is no report of this being done. -Follow up sleep study again outpatient (12) Head ache Status: Acute Problem Text: ? cause. Sinus thickening: added on Flonase. May be HTN related: increased Lisinopril. + MS changes also, consider MRI/MRA head and neck given hx of CAD. Plan/VTE VTE Prophylaxis Ordered?: Yes (2 platelet therapy) Disposition Possibly home 08/18/2016 pending renal status VS, I&O, 24H, Fishbone Vital Signs/I&O Vital Signs Date Time Temp Pulse Resp B/P Pulse Ox O2 Delivery O2 Flow Rate FiO2 08/17/16 10:03 Room Air 08/17/16 06:00 99.3 62 18 122/57 98 08/16/16 08:00 2.0 I&O- Last 24 Hours up to 6 AM 08/17/16 06:00 Intake Total 1810 ml Output Total 200 ml Balance 1610 ml Laboratory Data 24H LABS Laboratory Tests 2 08/17/16 06:32: Anion Gap 8, White Blood Count 6.8, Red Blood Count 3.78L, Hemoglobin 10.4L, Hematocrit 32.2L, Mean Corpuscular Volume 85.3, Mean Corpuscular Hemoglobin 27.6 , Mean Corpuscular Hemoglobin Concent 32.3, Red Cell Distribution Width 13.4, Platelet Count 216, Neutrophils (%) (Auto) 76.5H, Lymphocytes (%) (Auto) 12.0L, Monocytes (%) (Auto) 8.1H, Eosinophils (%) (Auto) 0.6, Basophils (%) (Auto) 0.1 , Neutrophils # (Auto) 5.2, Lymphocytes # (Auto) 1.0L, Monocytes # (Auto) 0.6, Eosinophils # (Auto) 0.0, Basophils # (Auto) 0.0, Blood Urea Nitrogen 29H, Creatinine 1.44H, Sodium Level 133L, Potassium Level 4.1, Chloride Level 94L, Carbon Dioxide Level 31, Calcium Level 9.0, Glomerular Filtration Rate 38.8L, Large Unclassified Cells # 0.2, Large Unclassified Cells % 2.6 CBC/BMP Laboratory Tests 08/17/16 06:32 Calcium Level 9.0, Red Blood Count 3.78 L, Mean Corpuscular Volume 85.3, Mean Corpuscular Hemoglobin 27.6, Mean Corpuscular Hemoglobin Concent 32.3, Red Cell Distribution Width 13.4, Neutrophils (%) (Auto) 76.5 H, Lymphocytes (%) (Auto) 12.0 L, Monocytes (%) (Auto) 8.1 H, Eosinophils (%) (Auto) 0.6, Basophils (%) ( Auto) 0.1, Neutrophils # (Auto) 5.2, Lymphocytes # (Auto) 1.0 L, Monocytes # ( Auto) 0.6, Eosinophils # (Auto) 0.0, Basophils # (Auto) 0.0 Microbiology Microbiology 08/15/16 Blood Culture - Preliminary, Resulted No growth after 24 hours . All specim... 08/15/16 Influenza Virus Type A Antigen - Final, Complete 08/15/16 Influenza Virus Type B Antigen - Final, Complete MONY LEDEZMA MD Aug 17, 2016 10:11
[2016-08-17] MEDS ORDERED: SODIUM CHLORIDE 0.9% 1000 ML IV ONE (10:15)
[2016-08-17 14:00] VITALS: BP 136/61
[2016-08-17] MEDS: LevoFLOXacin 750 MG TABLET PO SCH (17:55)
[2016-08-17 22:00] VITALS: BP 110/55
[2016-08-17] MEDS: ATORVASTATIN 20 MG TAB PO SCH (22:21)
[2016-08-17] MEDS: LISINOPRIL 40 MG TAB PO SCH (22:21)
[2016-08-18 06:00] VITALS: BP 129/58
[2016-08-18] MEDS: PERCOCET 5MG/325MG TAB PO PRN ×3 (06:58→21:21)
[2016-08-18] MEDS: FIORICET TAB PO PRN ×3 (06:58→21:22)
[2016-08-18] MEDS: TIOTROPIUM INHALER/CAPSULE (SPIRIVA) INH SCH (07:06)
[2016-08-18] MEDS: ADVAIR DISKUS 500/50 INH PWD INH SCH ×2 (07:06→20:45)
[2016-08-18 07:22] LABS: BASO % 0.2 % (0.0-1.0); EOS % 0.7 % (0.0-3.0); LARGE UNSTAINED CELL # 0.2 K/mm3 (0.0-0.4); LARGE UNSTAINED CELL % 3.3 % (0.0-4.0); LYMPH # 1.3 K/mm3 (1.5-4.5); LYMPH % 17.5 % (24.0-44.0); MEAN CORPUSCULAR HEMOGLOBIN 28.3 pg (27.0-33.0); MEAN CORPUSCULAR VOLUME 85.8 fl (80.0-96.0); MONO # 0.6 K/mm3 (0.0-0.8); MONO % 9.4 % (0.0-5.0); NEUTROPHILS # 4.4 K/mm3 (1.8-7.7); PLATELET COUNT, AUTOMATED 221 k/mm3 (150-450); RED CELL DISTRIBUTION WIDTH 13.5 % (11.5-14.5); WHITE BLOOD COUNT 6.4 K/mm3 (4.0-10.0)
[2016-08-18 07:56] LABS: CREATININE FOR GFR 1.56 MG/DL (0.55-1.02); GLOMERULAR FILTRATION RATE 35.3 (>45); POTASSIUM SERUM 4.1 MEQ/L (3.5-5.1)
[2016-08-18] MEDS: ASPIRIN 81 MG ENTERIC TAB PO SCH (08:06)
[2016-08-18] MEDS: predniSONE 20 MG TAB PO SCH (08:06)
[2016-08-18] MEDS: CLOPIDOGREL 75 MG TAB PO SCH (08:06)
[2016-08-18] MEDS: ATENOLOL 50 MG TAB PO SCH (08:06)
[2016-08-18] MEDS: PANTOPRAZOLE 40MG TAB (PROTONIX) PO SCH ×2 (08:07→20:44)
[2016-08-18] MEDS: SENOKOT S TAB PO SCH ×2 (08:07→20:43)
[2016-08-18] MEDS: FLUTICASONE PROP 0.05% NASAL SPRAY 16 GM (FLONASE) SCH ×2 (08:07→20:44)
--- NOTE | 2016-08-18 08:52 | IPNPDOC ---
Subjective Date Seen The patient was seen on 08/18/16. Subjective Chief Complaint/HPI The patient is a 65-year-old female admitted with a reason for visit of Acute Copd W/Respiratory Failure. Events since last encounter Noting improvement. no PT eval yet due to lethargy yesterday. Cr. remains elevated. Constitutional: Denies: Chills, Fever, Night Sweats Pulmonary: Denies: Cough, Dyspnea Cardiovascular: Denies: Chest Pain, Lt Headedness, Orthopnea, Palpitations, Paroxysmal Noc. Dyspnea Gastrointestinal: Denies: Abdominal Pain, Constipation, Diarrhea, Nausea, Vomiting Genitourinary: Denies: Dysuria, Frequency, Incontinence, Retention Psych: Reports: Mood Normal, Denies: Depression, Memory Issues Objective Physical Examination General Exam: Positive: Alert, Cooperative, No Acute Distress Eye Exam: Positive: Conjunctiva & lids normal, PERRLA ENT Exam: Positive: Atraumatic, Mucous membr. moist/pink, Other ENT (nasal cannula in place on 3 L) Neck Exam: Positive: Supple, Negative: JVD, thyromegaly Chest Exam: Positive: Diminished, Normal air movement, Wheezing, Negative: Rales, Rhonchi Heart Exam: Positive: Murmurs (2/6 systolic ejection murmur), Normal S1, Normal S2, Regular Rhythm, Tachycardic Telemetry: Positive: No significant arrhythmia, Other Telemetry: (reviewed EKG which showed persistent left bundle branch block, unchanged from previous, no acute changes) Abdomen Exam: Positive: Normal bowel sounds, Soft, Negative: Hepatospenomegaly, Tenderness Extremity Exam: Positive: Clubbing, Normal pulses, Negative: Cyanosis, Edema Skin Exam: Positive: Nl turgor and temperature, Negative: Rash Psych Exam: Positive: Mental status NL, Oriented x 3 Assessment /Plan Problems (1) NORBERT (acute kidney injury) Status: Acute Problem Text: Patient's renal function is worsening, so we'll watch the patient for another day. Patient has not been taking her normal by mouth intake. BNP is at patient's baseline. No rales on exam -Normal saline bolus -Hold Lasix (2) Acute chronic obstructive pulmonary disease with respiratory failure Status: Acute Problem Text: Acute symptoms of likely viral syndrome. Flu swab is pending. Chest x-ray consistent with viral pneumonia, although focal infiltrates could not be excluded. Given patient's extensive COPD, will treat with Levaquin and prednisone for acute exacerbation of chronic respiratory failure. Baseline home oxygen is 2 L. Patient follows with abdominal GI outpatient. Currently on Breo, Spiriva, and nebulizers, in addition to home oxygen. Breo unavailable, so will order high-dose Advair. -Admit to medicine -Continuous pulse oximetry for acute on chronic hypoxemic respiratory failure and likely JUDY -Prednisone 60 mg daily -Levaquin 750 g daily; automated GFR calculation is less than 50 based on creatinine, however based on patient's body mass index I think she is likely well above 50, so will not renally dose Levaquin -Follow up flu swab - Advair Diskus 500/50, Spiriva, when necessary nebs 08/16/2016: oxygen saturations improving. Desaturates to 88% with conversation. Continue with Levaquin and prednisone. (3) Congestive heart failure Status: Chronic Problem Text: Patient was initially treated with Lasix in the ER. However, BNP is essentially a patient's baseline, and chest x-ray does not show any appreciable pulmonary vascular congestion. Patient does have a history of valvular heart disease, with mitral regurgitation, pulmonary hypertension, and likely obstructive sleep apnea. EKG shows stable left bundle branch block with no acute changes. Outpatient records note EF of 30% (4) Coronary artery disease Status: Chronic Problem Text: Patient has a history of coronary artery disease status post stenting. She has a stable left bundle branch block on EKG, no acute changes. -Continue aspirin and Plavix; will hold on additional anticoagulation due to a dual antiplatelet therapy -Continue Lipitor 80 mg daily (5) Mitral regurgitation Status: Chronic Problem Text: History of moderate mitral valve regurgitation (6) Former very heavy cigarette smoker (more than 40 per day) Status: Chronic Problem Text: Greater than [id number] smoking history. Patient is now a nonsmoker (7) Obesity (BMI 30-39.9) Status: Chronic Response to Treatment: Improving Problem Text: Previous PMI was over 40, patient has been losing some weight intentionally over the last several months. (8) Hypertension Status: Chronic Problem Text: Blood pressure uncontrolled with Max 186/78. c/o GILL and feeling poorly with altered mentation. Will increase Lisinopril to 40 mg po daily. HR stable: 60s -Atenolol 50 mg daily, furosemide 40 mg daily, (9) Elevated fasting glucose Status: Acute Problem Text: Formerly elevated fasting glucose. Obesity. -Recheck A1c (10) Hiatal hernia with GERD Status: Acute Problem Text: Patient is on twice a day PPI due to hiatal hernia with severe reflux. -Continue twice-daily Protonix (11) JUDY (obstructive sleep apnea) Status: Acute Problem Text: History of symptoms suggestive of severe obstructive sleep apnea. Patient was scheduled to have sleep study done on the fifth, however there is no report of this being done. -Follow up sleep study again outpatient (12) Head ache Status: Acute Problem Text: ? cause. Sinus thickening: added on Flonase. May be HTN related: increased Lisinopril. + MS changes also, consider MRI/MRA head and neck given hx of CAD. Plan/VTE VTE Prophylaxis Ordered?: Yes (2 platelet therapy) Plan Attending note: I saw and evaluated the patient, and I agree with the plan of care as discussed and documented above by Lizzy Winchester. Pts respiratory status is at baseline. NORBERT not improved. Pt not taking good PO fluids. I&O records indicate pt is net positive, but don't believe this to be accurate as pt is clinically dry and has worsening NORBERT with hyponatremia/chloremia. Will gently bolus today and plan for D/C tomorrow pending improving renal function. Mony Ledezma MD VS, I&O, 24H, [facility] Vital Signs/I&O Vital Signs Date Time Temp Pulse Resp B/P Pulse Ox O2 Delivery O2 Flow Rate FiO2 08/18/16 08:06 70 129/58 08/18/16 07:28 20 Room Air 08/18/16 06:58 96 08/18/16 06:00 96.9 08/16/16 08:00 2.0 I&O- Last 24 Hours up to 6 AM 08/18/16 05:59 Intake Total 1620 ml Output Total 850 ml Balance 770 ml Laboratory Data 24H LABS Laboratory Tests 2 08/17/16 11:23: Urine Amorphous Sediment , Urine Appearance HAZY, Urine Color YELLOW, Urine pH 5.0, Urine Specific [place] 1.013, Urine Protein NEGATIVE, Urine Glucose (UA) NEGATIVE, Urine Ketones NEGATIVE, Urine Urobilinogen 0.2, Urine Bilirubin NEGATIVE, Urine Leukocyte Esterase NEGATIVE, Urine Bacteria (Auto) NEGATIVE, Urine Blood NEGATIVE, Urine Calcium Carbonate Cryst(Auto) , Urine Calcium Oxalate Cryst (Auto) , Urine Calcium Phosphate Mercedes (Auto) , Urine Cellular Casts , Urine Cystine Crystals , Urine Granular Casts (Auto) , Urine Hyaline Casts (Auto) 5, Urine Leucine Crystals , Urine Mucus (Auto) SMALL, Urine Nitrite NEGATIVE, Urine Oval Fat Bodies (Auto) , Urine RBC (Auto) 0, Urine Renal Epithelial Cells , Urine Sperm (Auto) , Urine Squamous Epithelial Cells 4 , Urine Transitional Epithelial Cells , Urine Trichomonas (Auto) , Urine Triple Phosphate Cryst (Auto) , Urine Tyrosine Crystals , Urine Uric Acid Crystals ( Auto) , Urine WBC (Auto) 2, Urine Waxy Casts (Auto) , Urine Yeast-Like Cells ( Auto) 08/18/16 06:45: Anion Gap 6L, White Blood Count 6.4, Red Blood Count 3.71L, Hemoglobin 10.5L, Hematocrit 31.8L, Mean Corpuscular Volume 85.8, Mean Corpuscular Hemoglobin 28.3 , Mean Corpuscular Hemoglobin Concent 33.0, Red Cell Distribution Width 13.5, Platelet Count 221, Neutrophils (%) (Auto) 69.0H, Lymphocytes (%) (Auto) 17.5L, Monocytes (%) (Auto) 9.4H, Eosinophils (%) (Auto) 0.7, Basophils (%) (Auto) 0.2 , Neutrophils # (Auto) 4.4, Lymphocytes # (Auto) 1.3L, Monocytes # (Auto) 0.6, Eosinophils # (Auto) 0.0, Basophils # (Auto) 0.0, Blood Urea Nitrogen 32H, Creatinine 1.56H, Sodium Level 135L, Potassium Level 4.1, Chloride Level 97L, Carbon Dioxide Level 32, Calcium Level 9.0, Glomerular Filtration Rate 35.3L, Large Unclassified Cells # 0.2, Large Unclassified Cells % 3.3 CBC/BMP Laboratory Tests 08/18/16 06:45 Calcium Level 9.0, Red Blood Count 3.71 L, Mean Corpuscular Volume 85.8, Mean Corpuscular Hemoglobin 28.3, Mean Corpuscular Hemoglobin Concent 33.0, Red Cell Distribution Width 13.5, Neutrophils (%) (Auto) 69.0 H, Lymphocytes (%) (Auto) 17.5 L, Monocytes (%) (Auto) 9.4 H, Eosinophils (%) (Auto) 0.7, Basophils (%) ( Auto) 0.2, Neutrophils # (Auto) 4.4, Lymphocytes # (Auto) 1.3 L, Monocytes # ( Auto) 0.6, Eosinophils # (Auto) 0.0, Basophils # (Auto) 0.0 Microbiology Microbiology 08/15/16 Blood Culture - Preliminary, Resulted No Growth after 48 hours. All Specime... 08/15/16 Influenza Virus Type A Antigen - Final, Complete 08/15/16 Influenza Virus Type B Antigen - Final, Complete Cely Winchester Aug 18, 2016 08:52 MONY LEDEZMA MD Aug 18, 2016 11:23
[2016-08-18] MEDS ORDERED: SODIUM CHLORIDE 0.9% 1000 ML IV ONE ×2 (11:30→18:00)
[2016-08-18 14:00] VITALS: BP 121/59
[2016-08-18] MEDS: LevoFLOXacin 750 MG TABLET PO SCH (18:14)
[2016-08-18] MEDS: ATORVASTATIN 20 MG TAB PO SCH (20:43)
[2016-08-18] MEDS: LISINOPRIL 40 MG TAB PO SCH (20:44)
[2016-08-18 22:00] VITALS: BP 131/63
[2016-08-19 06:00] VITALS: BP 96/50
[2016-08-19] MEDS: TIOTROPIUM INHALER/CAPSULE (SPIRIVA) INH SCH (07:10)
[2016-08-19] MEDS: ADVAIR DISKUS 500/50 INH PWD INH SCH (07:10)
[2016-08-19 07:12] LABS: BASO % 0.3 % (0.0-1.0); EOS % 0.7 % (0.0-3.0); LARGE UNSTAINED CELL # 0.2 K/mm3 (0.0-0.4); LARGE UNSTAINED CELL % 2.8 % (0.0-4.0); LYMPH # 1.6 K/mm3 (1.5-4.5); LYMPH % 18.9 % (24.0-44.0); MEAN CORPUSCULAR HEMOGLOBIN 28.3 pg (27.0-33.0); MEAN CORPUSCULAR HGB CONC 32.8 g/dl (32.0-36.5); MEAN CORPUSCULAR VOLUME 86.1 fl (80.0-96.0); MONO # 0.6 K/mm3 (0.0-0.8); MONO % 7.8 % (0.0-5.0); NEUTROPHILS % 69.5 % (36.0-66.0); PLATELET COUNT, AUTOMATED 208 k/mm3 (150-450); RED CELL DISTRIBUTION WIDTH 13.5 % (11.5-14.5); WHITE BLOOD COUNT 7.2 K/mm3 (4.0-10.0)
[2016-08-19 07:13] LABS: CALCIUM LEVEL 8.7 MG/DL (8.8-10.2); CREATININE FOR GFR 1.36 MG/DL (0.55-1.02); GLOMERULAR FILTRATION RATE 41.4 (>45); POTASSIUM SERUM 4.1 MEQ/L (3.5-5.1)
[2016-08-19] MEDS: FLUTICASONE PROP 0.05% NASAL SPRAY 16 GM (FLONASE) SCH (08:11)
[2016-08-19] MEDS: predniSONE 20 MG TAB PO SCH (08:11)
[2016-08-19 08:12] VITALS: BP 96/50
[2016-08-19] MEDS: ASPIRIN 81 MG ENTERIC TAB PO SCH (08:12)
[2016-08-19] MEDS: SENOKOT S TAB PO SCH (08:12)
[2016-08-19] MEDS: CLOPIDOGREL 75 MG TAB PO SCH (08:12)
[2016-08-19] MEDS: PANTOPRAZOLE 40MG TAB (PROTONIX) PO SCH (08:12)
[2016-08-19] MEDS: ATENOLOL 50 MG TAB PO SCH (08:12)
[2016-08-19] MEDS: PERCOCET 5MG/325MG TAB PO PRN (08:27)
[2016-08-19] MEDS: FIORICET TAB PO PRN (08:27)
[2016-08-19] MEDS ORDERED: LEVA750T PO (14:19)
[2016-08-19] MEDS ORDERED: DELT1TAB PO (14:19)
== END 2016-08-19 15:57 | disposition home or self-care (01) | DRG 189 ==
LOC: M ED 12:30 → M ED INP 15:21 → M MS5PR 16:50
PROVIDERS: ADMIT Family Medicine; ATTEND Family Medicine
DX: J96.21 Acute and chronic respiratory failure with hypoxia (principal); J12.9 Viral pneumonia, unspecified; J44.1 Chronic obstructive pulmonary disease with (acute) exacerbation; I50.32 Chronic diastolic (congestive) heart failure; N17.9 Acute kidney failure, unspecified; J44.0 Chronic obstructive pulmonary disease with (acute) lower respiratory infection; E66.01 Morbid (severe) obesity due to excess calories; I34.0 Nonrheumatic mitral (valve) insufficiency; I11.0 Hypertensive heart disease with heart failure; I25.10 Atherosclerotic heart disease of native coronary artery without angina pectoris; K44.9 Diaphragmatic hernia without obstruction or gangrene; K21.9 Gastro-esophageal reflux disease without esophagitis; G47.33 Obstructive sleep apnea (adult) (pediatric); I71.4 Abdominal aortic aneurysm, without rupture; I27.2 Other secondary pulmonary hypertension; M54.5 Low back pain; Z99.81 Dependence on supplemental oxygen; Z79.82 Long term (current) use of aspirin; Z79.899 Other long term (current) drug therapy; Z95.5 Presence of coronary angioplasty implant and graft; Z87.891 Personal history of nicotine dependence; Z68.39 Body mass index [BMI] 39.0-39.9, adult

== ENCOUNTER → 2016-09-29 | Outpatient (REF) | payer MEDICARE ==
[~2016-09-29] MED LIST changes: +DELT1TAB PO; +LEVA750T PO; +LOMO2.5T PO; +NYST100024 TOP; +SPIR1CAP INH; +VITMTA PO
[2016-09-29 12:36] LABS: CALCIUM LEVEL 9.6 MG/DL (8.8-10.2); CREATININE FOR GFR 1.13 MG/DL (0.55-1.02); GLOMERULAR FILTRATION RATE 51.1 (>45); POTASSIUM SERUM 4.6 MEQ/L (3.5-5.1)
== END ==
LOC: M SFHCPLAZ 10:39
PROVIDERS: ATTEND Family Medicine
DX: I50.9 Heart failure, unspecified (principal)

== ENCOUNTER → 2016-10-14 | Outpatient (CLI) | payer MEDICARE ==
--- NOTE | 2016-10-18 08:43 | SLEEPCENT ---
DATE OF PROCEDURE: 10/14/2016 REQUESTING PROVIDER: Alison Yeh NP INTERPRETATION: Nocturnal polysomnography was performed for evaluation of sleep apnea syndrome symptoms in this patient with a history of excessive somnolence and nonrestorative sleep. 7 hours and 47 minutes of data were reviewed. There were 338 minutes of sleep identified. Sleep latency was prolonged at 19 minutes. Rapid eye movement (REM) latency was normal at 79 minutes. Sleep architecture showed severe fragmentation. Progression was fairly well maintained. There were two REM periods appreciated. Overall sleep efficiency 75.6%. The patient's electrocardiogram (EKG) showed a sinus rhythm with an average heart rate of 72 beats per minute. Premature ventricular contractions (PVCs) were noted. Electroencephalogram (EEG) showed normal waveforms for awake and sleep. There were 345 respiratory events identified of 10 seconds in duration or greater fro an apnea hypopnea index of 61.2. The events were primarily obstructed, not exclusive to sleep stage nor body posture. Arousals from respiratory events occurred 24.1 times per hour. Oxygen desaturations occurred into the 70s. There was minimal limb activity and remaining measures of sleep physiology were normal. IMPRESSION: 1. Severe obstructive sleep apnea syndrome (G47.33). Apnea hypopnea index of 61.2. RECOMMENDATIONS: The patient should be encouraged to return to the [facility] at her earliest convenience for pressure therapy. In the interim, alcohol and sedative avoidance should be practiced and caution exercised during the operation of motor vehicles.
== END ==
LOC: M SLEEP 19:39
PROVIDERS: ATTEND Nurse Practitioner Adult Health
DX: G47.30 Sleep apnea, unspecified (principal)

== ENCOUNTER → 2016-11-15 | Outpatient (CLI) | payer MEDICARE ==
[~2016-11-15] MED LIST changes: -ATOR1TAB18; -ATOR1TAB18 PO; +ATOR80TA59; +ATOR80TA59 PO; -LEVA750T PO; +LEVA750T7 PO; -MAGN250T2 PO; +MAGN250T7 PO; -MUCI600T34 PO; +MUCI600T37 PO; -NYST100024 TOP; +NYST1POW9 TOP; +PLAV1TAB2 PO; -PLAV75TA38 PO
--- NOTE | 2016-11-18 09:03 | SLEEPCENT ---
DATE OF STUDY: 11/15/2016 ORDERING PROVIDER: Alison Yeh NP Nocturnal polysomnography was performed for the titration of pressure therapy in this patient with obstructive sleep apnea syndrome, apnea-hypopnea index of 60. For testing, the patient was fit with a ResMed Quattro full face mask of small size. 4 cm of water pressure were applied to the circuit, and the lights were extinguished. 7 hours and 29 minutes of data were reviewed. There were 345 minutes of sleep identified. Sleep latency was normal at 14 minutes. Rapid eye movement (REM) latency was mildly delayed at 100 minutes. Sleep architecture was good with evidence of REM rebound late in the study. Overall sleep efficiency was 77.8%. The patient's electrocardiogram (EKG) showed a sinus rhythm with interventricular conduction delay. Average heart rate 68 beats per minute. There was some unifocal ventricular activity identified. Electroencephalogram (EEG) showed normal waveforms for awake and sleep. Respiratory events were found best palliated with continuous positive airway pressure (CPAP) at a pressure of +10, with which pressure the patient slept through REM without respiratory event or oxygen desaturation. There was persistent limb activity throughout the study, with four trains of 30 events. Limb movement arousal index was at 13.4. This is significantly increased from the patient's diagnostic study night. IMPRESSION: 1. Obstructive sleep apnea syndrome (G47.33). 2. Possible Periodic limb movement disorder (G47.61). Limb movement arousal index 13.4. RECOMMENDATION: Nightly use of pressure therapy at 10 cm of water is sufficient to address the patient's respiratory events. If sleep symptoms persist, interventions to reduce the frequency of arousals and limb activity may also be helpful.
== END ==
LOC: M SLEEP 19:55
PROVIDERS: ATTEND Nurse Practitioner Adult Health
DX: G47.33 Obstructive sleep apnea (adult) (pediatric) (principal); G47.61 Periodic limb movement disorder

== ENCOUNTER → 2017-07-19 | Outpatient (CLI) | payer MEDICARE | LOC: M PAIN 08:45 | DX: M47.27 Other spondylosis with radiculopathy, lumbosacral region (principal); M53.3 Sacrococcygeal disorders, not elsewhere classified; J44.9 Chronic obstructive pulmonary disease, unspecified; E11.9 Type 2 diabetes mellitus without complications; I50.9 Heart failure, unspecified; K21.9 Gastro-esophageal reflux disease without esophagitis; I71.4 Abdominal aortic aneurysm, without rupture; K44.9 Diaphragmatic hernia without obstruction or gangrene; I11.0 Hypertensive heart disease with heart failure; Z79.82 Long term (current) use of aspirin; Z79.84 Long term (current) use of oral hypoglycemic drugs; Z79.899 Other long term (current) drug therapy; Z87.891 Personal history of nicotine dependence | CPT/HCPCS: G0463 ==

== ENCOUNTER → 2017-08-11 | Outpatient (CLI) | payer MEDICARE ==
[~2017-08-11] MED LIST changes: -ADV250INH INH; -ALB2.5NEB INH; -ALBU83IN; -ASPI1TAB PO; -ATEN50TA2; -ATEN50TA2 PO; -ATOR80TA59; -ATOR80TA59 PO; -BREO1INH3; -BREO1INH3 INH; +BUPIVACAINE HCL 0.25% 30 ML VIAL As Ordered; -CLOP75TA2; -DELT1TAB PO; -FOLI1TAB86 PO; -FOLI800T PO; -FURO20TA PO; -FURO20TA2 PO; -FURO40TA2; -FURO40TA2 PO; -IBUP200C PO; -IBUPOTC PO; +ISOVUE-M 300 61% 15ML VIAL (Q9967) As Ordered; -LEVA750T7 PO; +LIDOCAINE 1% SDV INJ 30 ML VIAL As Ordered; -LISI-538; -LISI-538 PO; -LOMO2.5T PO; -MAGN250T7 PO; -MUCI600T37 PO; -NICO21PAT EXT; -NYAM10003 EXT; -NYST1POW9 TOP; -PANT40TA2; -PANT40TA2 PO; -PLAV1TAB2 PO; -PRED10TA PO; -PRIN10TA PO; -SPIR1CAP INH; -SPIRIVA INH; +TRIAMCINOLONE ACETONIDE SUSP 40 MG/ML VIAL (J3301) As Ordered; -TYLE325T5 PO; -VITA100T2 PO; -VITACHTA PO; -VITMTA PO; +diazePAM 5 MG TAB As Ordered; +oxyCODONE 5MG TAB As Ordered
== END ==
LOC: M PAIN 10:45
DX: G89.29 Other chronic pain (principal); M47.816 Spondylosis without myelopathy or radiculopathy, lumbar region; M47.817 Spondylosis without myelopathy or radiculopathy, lumbosacral region; J44.9 Chronic obstructive pulmonary disease, unspecified; I50.9 Heart failure, unspecified; I11.0 Hypertensive heart disease with heart failure; E11.9 Type 2 diabetes mellitus without complications; K21.9 Gastro-esophageal reflux disease without esophagitis; K44.9 Diaphragmatic hernia without obstruction or gangrene; Z79.01 Long term (current) use of anticoagulants; Z79.4 Long term (current) use of insulin; Z79.51 Long term (current) use of inhaled steroids; Z79.899 Other long term (current) drug therapy; Z87.891 Personal history of nicotine dependence
CPT/HCPCS: J3301

== ENCOUNTER → 2017-08-15 | Outpatient (REF) | payer MEDICARE ==
[2017-08-15 15:14] LABS: ESTIMATED AVERAGE GLUCOSE 111 MG/DL (60-110); HEMOGLOBIN A1c 5.5 %
[2017-08-15 15:17] LABS: ANION GAP 7 MEQ/L (8-16); BLOOD UREA NITROGEN 37 MG/DL (7-18); CALCIUM LEVEL 9.5 MG/DL (8.8-10.2); CARBON DIOXIDE LEVEL 28 MEQ/L (21-32); CHLORIDE LEVEL 101 MEQ/L (98-107); CREATININE FOR GFR 1.44 MG/DL (0.55-1.30); GLOMERULAR FILTRATION RATE 38.7 (>45); GLUCOSE, FASTING 82 MG/DL (70-100); POTASSIUM SERUM 5.1 MEQ/L (3.5-5.1); SODIUM LEVEL 136 MEQ/L (136-145)
== END ==
LOC: M SFHCPLAZ 10:31
DX: E11.9 Type 2 diabetes mellitus without complications (principal); I50.9 Heart failure, unspecified
CPT/HCPCS: 83036

== ENCOUNTER → 2017-09-13 | Outpatient (CLI) | payer MEDICARE | LOC: M PAIN 08:45 | DX: M47.27 Other spondylosis with radiculopathy, lumbosacral region (principal); M53.3 Sacrococcygeal disorders, not elsewhere classified; J44.9 Chronic obstructive pulmonary disease, unspecified; K21.9 Gastro-esophageal reflux disease without esophagitis; K44.9 Diaphragmatic hernia without obstruction or gangrene; I50.9 Heart failure, unspecified; I11.0 Hypertensive heart disease with heart failure; Z79.01 Long term (current) use of anticoagulants; Z79.51 Long term (current) use of inhaled steroids; Z79.82 Long term (current) use of aspirin; Z79.899 Other long term (current) drug therapy; Z87.891 Personal history of nicotine dependence | CPT/HCPCS: G0463 ==

== ENCOUNTER → 2017-10-05 | Outpatient (CLI) | payer MEDICARE ==
[~2017-10-05] MED LIST changes: -BUPIVACAINE HCL 0.25% 30 ML VIAL As Ordered; -TRIAMCINOLONE ACETONIDE SUSP 40 MG/ML VIAL (J3301) As Ordered; +methylPREDNISolone SUSP 40 MG/ML (DEPO-medrol) VIAL (J1030) As Ordered
== END ==
LOC: M PAIN 10:15
DX: G89.29 Other chronic pain (principal); M51.16 Intervertebral disc disorders with radiculopathy, lumbar region; M51.17 Intervertebral disc disorders with radiculopathy, lumbosacral region; E11.9 Type 2 diabetes mellitus without complications; I10 Essential (primary) hypertension; K44.9 Diaphragmatic hernia without obstruction or gangrene; J44.9 Chronic obstructive pulmonary disease, unspecified; Z79.82 Long term (current) use of aspirin; Z79.51 Long term (current) use of inhaled steroids; Z79.891 Long term (current) use of opiate analgesic; Z79.899 Other long term (current) drug therapy; Z86.79 Personal history of other diseases of the circulatory system; Z87.891 Personal history of nicotine dependence
CPT/HCPCS: J1030

== ENCOUNTER 2017-10-17 10:48 | Day surgery (SDC) | payer MEDICARE ==
[~2017-10-17 10:48] MED LIST changes: -ISOVUE-M 300 61% 15ML VIAL (Q9967) As Ordered; -LIDOCAINE 1% SDV INJ 30 ML VIAL As Ordered; +LIDOCAINE 2% INJ 100 MG/5 ML SDV (FOR ANES.) As Ordered; +PROPOFOL 500 MG/50 ML VIAL As Ordered; -diazePAM 5 MG TAB As Ordered; +fentaNYL 100 MCG/2 ML INJECTION (J3010) As Ordered; -methylPREDNISolone SUSP 40 MG/ML (DEPO-medrol) VIAL (J1030) As Ordered; -oxyCODONE 5MG TAB As Ordered
[2017-10-17] MEDS: NS 1,000 ML IV ×2 (11:00→11:01)
[2017-10-17 11:42] LABS: BEDSIDE GLUCOSE 128 MG/DL (80-115)
[2017-10-17] MEDS: ATENOLOL 50 MG TAB PO (11:45)
[2017-10-17] MEDS: ASPIRIN 81 MG CHEW TABLET PO (11:45)
== END 2017-10-17 12:37 | disposition home or self-care (01) ==
LOC: M OPP 10:48
DX: Z12.11 Encounter for screening for malignant neoplasm of colon (principal); Z86.010 Personal history of colon polyps; K64.8 Other hemorrhoids; K57.30 Diverticulosis of large intestine without perforation or abscess without bleeding; K44.9 Diaphragmatic hernia without obstruction or gangrene; R13.10 Dysphagia, unspecified; R12 Heartburn; K21.9 Gastro-esophageal reflux disease without esophagitis; I10 Essential (primary) hypertension; J44.9 Chronic obstructive pulmonary disease, unspecified; E78.00 Pure hypercholesterolemia, unspecified; I20.9 Angina pectoris, unspecified; M16.9 Osteoarthritis of hip, unspecified; M17.0 Bilateral primary osteoarthritis of knee; R51 Headache; G47.30 Sleep apnea, unspecified; Z79.82 Long term (current) use of aspirin; Z79.891 Long term (current) use of opiate analgesic; Z79.899 Other long term (current) drug therapy; Z79.84 Long term (current) use of oral hypoglycemic drugs; Z95.5 Presence of coronary angioplasty implant and graft; Z87.891 Personal history of nicotine dependence; Z98.51 Tubal ligation status
CPT/HCPCS: G0105

== ENCOUNTER → 2017-11-23 | Outpatient (CLI) | payer MEDICARE ==
[~2017-11-23] MED LIST changes: +BUPIVACAINE HCL 0.25% 30 ML VIAL As Ordered; +ISOVUE-M 300 61% 15ML VIAL (Q9967) As Ordered; +LIDOCAINE 1% SDV INJ 30 ML VIAL As Ordered; -LIDOCAINE 2% INJ 100 MG/5 ML SDV (FOR ANES.) As Ordered; -PROPOFOL 500 MG/50 ML VIAL As Ordered; -fentaNYL 100 MCG/2 ML INJECTION (J3010) As Ordered
== END ==
LOC: M PAIN 08:45
DX: G89.29 Other chronic pain (principal); M47.816 Spondylosis without myelopathy or radiculopathy, lumbar region; M47.817 Spondylosis without myelopathy or radiculopathy, lumbosacral region; E11.9 Type 2 diabetes mellitus without complications; I10 Essential (primary) hypertension; K44.9 Diaphragmatic hernia without obstruction or gangrene; K21.9 Gastro-esophageal reflux disease without esophagitis; J44.9 Chronic obstructive pulmonary disease, unspecified; Z79.01 Long term (current) use of anticoagulants; Z79.51 Long term (current) use of inhaled steroids; Z79.82 Long term (current) use of aspirin; Z79.891 Long term (current) use of opiate analgesic; Z79.899 Other long term (current) drug therapy; Z86.79 Personal history of other diseases of the circulatory system; Z87.891 Personal history of nicotine dependence
CPT/HCPCS: Q9967

== ENCOUNTER → 2017-12-21 | Outpatient (CLI) | payer MEDICARE | LOC: M PAIN 09:45 | DX: M47.27 Other spondylosis with radiculopathy, lumbosacral region (principal); I10 Essential (primary) hypertension; K44.9 Diaphragmatic hernia without obstruction or gangrene; J44.9 Chronic obstructive pulmonary disease, unspecified; Z79.51 Long term (current) use of inhaled steroids; Z79.82 Long term (current) use of aspirin; Z79.891 Long term (current) use of opiate analgesic; Z79.899 Other long term (current) drug therapy; Z86.79 Personal history of other diseases of the circulatory system; Z87.891 Personal history of nicotine dependence | CPT/HCPCS: G0463 ==

== ENCOUNTER → 2018-01-10 | Outpatient (CLI) | payer MEDICARE | LOC: M PAIN 08:30 | DX: G89.29 Other chronic pain (principal); M47.816 Spondylosis without myelopathy or radiculopathy, lumbar region; M47.817 Spondylosis without myelopathy or radiculopathy, lumbosacral region; I50.9 Heart failure, unspecified; I11.0 Hypertensive heart disease with heart failure; K44.9 Diaphragmatic hernia without obstruction or gangrene; J44.9 Chronic obstructive pulmonary disease, unspecified; Z79.51 Long term (current) use of inhaled steroids; Z79.84 Long term (current) use of oral hypoglycemic drugs; Z79.01 Long term (current) use of anticoagulants; Z79.82 Long term (current) use of aspirin; Z79.891 Long term (current) use of opiate analgesic; Z79.899 Other long term (current) drug therapy; Z87.891 Personal history of nicotine dependence | CPT/HCPCS: Q9967 ==

== ENCOUNTER → 2018-01-23 | Outpatient (REF) | payer MEDICARE ==
[2018-01-23 13:26] LABS: ANION GAP 11 MEQ/L (8-16); BLOOD UREA NITROGEN 11 MG/DL (7-18); CALCIUM LEVEL 9.5 MG/DL (8.8-10.2); CARBON DIOXIDE LEVEL 24 MEQ/L (21-32); CHLORIDE LEVEL 105 MEQ/L (98-107); GLOMERULAR FILTRATION RATE 52.6 (>45); GLUCOSE, FASTING 119 MG/DL (70-100); POTASSIUM SERUM 4.2 MEQ/L (3.5-5.1); SODIUM LEVEL 140 MEQ/L (136-145)
[2018-01-23 13:39] LABS: CREATININE, URINE 21.8 MG/DL; MALB URINE SIEMENS < 5.0 MG/L
[2018-01-23 13:44] LABS: MAU/CREAT RATIO 22.9 MCG/MG (0.0-30.0)
[2018-01-23 15:09] LABS: ESTIMATED AVERAGE GLUCOSE 117 MG/DL (60-110); HEMOGLOBIN A1c 5.7 %
== END ==
LOC: M LABDRAW1 11:01
DX: E11.22 Type 2 diabetes mellitus with diabetic chronic kidney disease (principal); N18.3 Chronic kidney disease, stage 3 (moderate)
CPT/HCPCS: 83036

== ENCOUNTER → 2018-02-07 | Outpatient (CLI) | payer MEDICARE | LOC: M PAIN 10:45 | DX: M47.27 Other spondylosis with radiculopathy, lumbosacral region (principal); I50.9 Heart failure, unspecified; H91.93 Unspecified hearing loss, bilateral; I11.0 Hypertensive heart disease with heart failure; I70.0 Atherosclerosis of aorta; K44.9 Diaphragmatic hernia without obstruction or gangrene; M48.061 Spinal stenosis, lumbar region without neurogenic claudication; Z87.891 Personal history of nicotine dependence; Z79.84 Long term (current) use of oral hypoglycemic drugs; Z79.82 Long term (current) use of aspirin; Z79.891 Long term (current) use of opiate analgesic; Z79.899 Other long term (current) drug therapy | CPT/HCPCS: G0463 ==

== ENCOUNTER → 2018-03-21 | Outpatient (CLI) | payer MEDICARE | LOC: M PAIN 09:15 | DX: M25.552 Pain in left hip (principal); M47.27 Other spondylosis with radiculopathy, lumbosacral region; I50.9 Heart failure, unspecified; H91.93 Unspecified hearing loss, bilateral; I11.0 Hypertensive heart disease with heart failure; I71.4 Abdominal aortic aneurysm, without rupture; E11.9 Type 2 diabetes mellitus without complications; K21.9 Gastro-esophageal reflux disease without esophagitis; K44.9 Diaphragmatic hernia without obstruction or gangrene; J44.9 Chronic obstructive pulmonary disease, unspecified; Z87.891 Personal history of nicotine dependence; Z79.84 Long term (current) use of oral hypoglycemic drugs; Z79.82 Long term (current) use of aspirin; Z79.891 Long term (current) use of opiate analgesic | CPT/HCPCS: G0463 ==

== ENCOUNTER 2018-04-12 08:24 | Emergency (ER) | payer MEDICARE | END 2018-04-12 10:14 | disposition home or self-care (01) | LOC: M ED 08:24 | DX: M21.611 Bunion of right foot (principal); M17.12 Unilateral primary osteoarthritis, left knee; R22.42 Localized swelling, mass and lump, left lower limb; M25.562 Pain in left knee; M77.31 Calcaneal spur, right foot; Z87.81 Personal history of (healed) traumatic fracture; I11.0 Hypertensive heart disease with heart failure; I50.9 Heart failure, unspecified; E11.9 Type 2 diabetes mellitus without complications; I25.2 Old myocardial infarction; R51 Headache; J44.9 Chronic obstructive pulmonary disease, unspecified; K21.9 Gastro-esophageal reflux disease without esophagitis; J45.909 Unspecified asthma, uncomplicated; K57.92 Diverticulitis of intestine, part unspecified, without perforation or abscess without bleeding; M54.9 Dorsalgia, unspecified; N28.9 Disorder of kidney and ureter, unspecified; Z87.440 Personal history of urinary (tract) infections; Z79.899 Other long term (current) drug therapy; Z79.02 Long term (current) use of antithrombotics/antiplatelets; Z79.82 Long term (current) use of aspirin; Z79.51 Long term (current) use of inhaled steroids | CPT/HCPCS: 73564 ==

== ENCOUNTER → 2018-04-14 | Outpatient (REF) | payer MEDICARE ==
[2018-04-14 12:32] LABS: URIC ACID 7.2 MG/DL (2.6-6.0)
== END ==
LOC: M LABDRAW1 11:40
DX: M10.9 Gout, unspecified (principal)
CPT/HCPCS: 84550

== ENCOUNTER 2018-05-13 06:20 | Inpatient (IN) | payer MEDICARE ==
[~2018-05-13] VITALS: Ht 157.5 cm; Wt 109.5 kg
[~2018-05-13 06:20] MED LIST changes: +ADV250INH INH; +ALB2.5NEB INH; +ALBU83IN; +ASPI1TAB PO; +ATEN50TA2; +ATEN50TA2 PO; +ATOR1TAB21 PO; +ATOR80TA59; +ATOR80TA59 PO; +BELB150M PO; +BREO1INH3; +BREO1INH3 INH; -BUPIVACAINE HCL 0.25% 30 ML VIAL As Ordered; +CLOP75TA2; +DELT1TAB PO; +DOK100TA PO; +DULO1CAP2 PO; +FOLI1TAB11 PO; +FOLI1TAB86 PO; +FOLI800T PO; +FURO20TA PO; +FURO20TA2 PO; +FURO40TA2; +FURO40TA2 PO; +GABA-843 PO; +IBUP200C PO; +IBUPOTC PO; -ISOVUE-M 300 61% 15ML VIAL (Q9967) As Ordered; +LEVA750T7 PO; -LIDOCAINE 1% SDV INJ 30 ML VIAL As Ordered; +LISI-538; +LISI-538 PO; +LOMO2.5T PO; +MAGN250T7 PO; +MUCI600T37 PO; +NICO21PAT EXT; +NYAM10003 EXT; +NYST1POW9 TOP; +PANT40TA3; +PANT40TA3 PO; +PLAV1TAB2 PO; +PRED10TA PO; +PRIN10TA PO; +RANI300T PO; +SITA50TAB PO; +SPIR1CAP INH; +SPIRIVA INH; +TRAM50TA2 PO; +TYLE325T5 PO; +VICT18IN SC; +VITA100T2 PO; +VITACHTA PO; +VITMTA PO
[2018-05-13] MEDS ORDERED: PROPOFOL 1,000 MG/100 ML VIAL As Ordered ONE (06:28)
[2018-05-13] MEDS: PROPOFOL 1,000 MG in APPROPRIATE DILUENT 1 EA IV SCH ×3 (06:33→08:30)
[2018-05-13] MEDS ORDERED: PIPERACILLIN/TAZOBACTAM SOD 3.375 GM in D5W MINI-BAG PLUS 50 ML IV ONE (06:45)
[2018-05-13] MEDS ORDERED: SUCCINYLCHOLINE INJ 200 MG/10 ML VIAL (J0330) IV ONE (06:45)
[2018-05-13] MEDS ORDERED: ETOMIDATE INJ 20MG/10ML VIAL IV ONE (06:45)
[2018-05-13 06:46] LABS: HEMOGLOBIN 12.1 g/dl (12.0-15.5); MEAN CORPUSCULAR HEMOGLOBIN 27.6 pg (27.0-33.0); MEAN CORPUSCULAR HGB CONC 28.1 g/dl (32.0-36.5); MEAN CORPUSCULAR VOLUME 97.9 fl (80.0-96.0); PLATELET COUNT, AUTOMATED 315 10^3/uL (150-450); RED BLOOD COUNT 4.39 10^6/uL (4.00-5.40)
[2018-05-13 06:58] LABS: ABG BASE EXCESS -21.2 (-2.0-2.0); ABG HCO3 13.5 MEQ/L (22.0-26.0); ABG O2 SATURATION 90.4 % (95.0-99.0); ABG PARTIAL PRESSURE O2 100.6 mmHg (75.0-100.0); ABG STANDARD HCO3 9.1 MEQ/L (22.0-26.0); ABG TOTAL CO2 15.9 MEQ/L (23.0-31.0)
[2018-05-13] MEDS ORDERED: methylPREDNISolone INJ 125 MG/2 ML VIAL (J2930) IV ONE (07:00)
[2018-05-13 07:02] LABS: ABG PARTIAL PRESSURE CO2 80.4 mmHg (35.0-45.0); ABG pH (ARTERIAL) 6.842 UNITS (7.350-7.450)
[2018-05-13 07:14] LABS: ALBUMIN 3.7 GM/DL (3.2-5.2); ALT/SGPT 58 U/L (12-78); BILIRUBIN,DIRECT < 0.1 MG/DL (0.0-0.2); BILIRUBIN,TOTAL 0.2 MG/DL (0.2-1.0); BLOOD UREA NITROGEN 19 MG/DL (7-18); CALCIUM LEVEL 9.2 MG/DL (8.8-10.2); CARBON DIOXIDE LEVEL 14 MEQ/L (21-32); CHLORIDE LEVEL 101 MEQ/L (98-107); CPK CREATINE PHOSPHOKINASE 98 U/L (26-192); CREATININE FOR GFR 1.78 MG/DL (0.55-1.30); GLOMERULAR FILTRATION RATE 30.2 (>45); GLUCOSE, FASTING 367 MG/DL (70-100); MB/CK RELATIVE INDEX 2.14 (< OR =4); NT-PRO BNP 3380 PG/ML (<125); POTASSIUM SERUM 4.4 MEQ/L (3.5-5.1); SODIUM LEVEL 139 MEQ/L (136-145); TOTAL PROTEIN 7.4 GM/DL (6.4-8.2); TROPONIN I < 0.02 NG/ML (< 0.10)
[2018-05-13 07:16] LABS: ATYPICAL LYMPH 1 % (0-5); BASOPHILS 1 % (0-4); EOSINOPHILS 2 % (0-5); LYMPHOCYTES 32 % (16-52); MONOCYTES 11 % (0-8); NEUTROPHILS 52 % (35-75)
[2018-05-13 07:17] LABS: PLATELET ESTIMATE NORMAL (NORMAL)
[2018-05-13] MEDS ORDERED: FOLI800T PO (07:26)
[2018-05-13] MEDS ORDERED: MAGN1TAB25 PO (07:26)
[2018-05-13] MEDS ORDERED: BELB75MI BUC (07:26)
[2018-05-13] MEDS ORDERED: LISI10TA4 PO (07:26)
[2018-05-13] MEDS ORDERED: FURO20TA2 PO (07:28)
[2018-05-13] MEDS ORDERED: ATOR80TA59 PO (07:28)
[2018-05-13] MEDS ORDERED: NS IV ONE (07:45)
[2018-05-13] MEDS ORDERED: DILUENT IV ONE (07:45)
--- NOTE | 2018-05-13 08:08 | ECGEPIP ---
Stationary ECG Study [facility] - ED Test Date: 2018-05-13 Pat Name: MICHELLE BISHOP Department: Room: - Gender: F Lymphedema Therapist: alvina : 1950 Requested By: ESPERANZA Arroyo Order Number: [id number] Reading MD: Satish Spencer Measurements Intervals [place] Rate: 125 P: 68 [place]: 226 QRS: 52 QRSD: 173 T: 201 QT: 353 QTc: 510 Interpretive Statements SINUS TACHYCARDIA WITH FIRST DEGREE AV BLOCK LEFT BUNDLE BRANCH BLOCK RATE CHANGE COMPARED TO 08/16/16 Electronically Signed On 05-13-2018 8:08:38 EST by Satish Spencer
--- NOTE | 2018-05-13 08:19 | REP ---
Chest one-view HISTORY: Cough Comparison: 06:44 a.m. 05/13/2018 A diffuse increase in interstitial markings is present in the lungs consistent with chronic interstitial fibrosis. There is blunting of the right costophrenic angle due to pleural thickening or small pleural effusion. The cardiac silhouette is enlarged. The pulmonary vasculature is normal in appearance. ET tube is present. Impression: 1. Interstitial fibrosis. 2. There is blunting of the right costophrenic angle due to pleural thickening or small pleural effusion. 3. Cardiomegaly. Electronically Signed by Shabbir Kahn MD 05/13/2018 08:10 A
--- NOTE | 2018-05-13 08:19 | REP ---
Chest one-view HISTORY: Cough Comparison: 08/15/2016 An increase in interstitial markings is present in the lungs consistent with chronic interstitial fibrosis. There is blunting of the right costophrenic angle due to pleural thickening or small pleural effusion. The cardiac silhouette is enlarged. The pulmonary vasculature is prominent. An ET tube is present. Impression: 1. Chronic interstitial fibrosis. 2. There is blunting of the right costophrenic angle due to pleural thickening or small pleural effusion. 3. Cardiomegaly. Electronically Signed by Shabbir Kahn MD 05/13/2018 08:11 A
[2018-05-13] MEDS ORDERED: MIDAZOLAM INJ 2 MG/2 ML VIAL (J2250) IV PRN (08:30)
[2018-05-13] MEDS ORDERED: MORPHINE 4 MG/ML 1ML VIAL/SYRINGE (J2270) IV PRN (08:30)
[2018-05-13] MEDS ORDERED: CHLORHEXIDINE GLUCONATE 0.12 % 15ML UDC (PERIDEX ORAL RINSE) MT SCH (09:00)
--- NOTE | 2018-05-13 09:01 | HPE ---
DATE OF ADMISSION: 05/13/2018 Geneva is a 67-year-old smoker who presents to the hospital with respiratory distress, agonal respirations. She had been having upper respiratory symptoms over the past few days. When emergency medical services (EMS) arrived to the scene, she was blue and agonal. Saturations were in the 50% range. With bagging, she was brought up to the 70-80% range and was bagged in the emergency room. Due to the severity of her respiratory distress, she was intubated on arrival. However, on review of her advanced directives, there is clear documentation she would not want any life sustaining treatments, including cardiopulmonary resuscitation. If they are started, she wants them stopped. She does not want artificial nutrition and hydration. She wants to be kept comfortable. She states she does not have objection to the use of brain criteria for determination of her . She does not want to donate any of her organ tissues. As far as her advanced directives, healthcare proxy, living will and other wishes, these have been clearly outlined. Deborah Gallito is who she has made her healthcare proxy; she is in the room. She also reiterates that her mom has expressed to her that she would not want these things done. The oldest son states that also he has heard his mom say that she would not want life support. Therefore, given the fact that she was admitted with severe hypoxic hypercarbic respiratory failure and apnea, I believe most likely extubation will lead to . She has a lactic acidosis and an elevated white count with likely pneumonia, already given antibiotics in the emergency room. Past medical history is significant for chronic obstructive pulmonary disease (COPD), congestion heart failure, coronary artery disease, nicotine dependence, mitral regurgitation, obesity, obstructive sleep apnea, hypertension, diabetes, gastroesophageal reflux disease and hypercholesterolemia. Home medications not pertinent at this juncture. No known drug allergies. FAMILY HISTORY AND SOCIAL HISTORY: All unobtainable unless what has been placed in the history of the present illness. REVIEW OF SYSTEMS: Unobtainable. PHYSICAL EXAMINATION: Temperature is 95.3, pulse is 120, respiratory rate 16, blood pressure is 130/70 on mechanical ventilation with oxygen saturation 93%. Pupils are reactive to light. The patient is not having any purposeful movements, however is on propofol. HEENT: Sclerae clear and anicteric. Pupils are equal and reactive to light. Mucous membranes are moist. Neck is supple. No tracheal deviation or mass. Lymph: No cervical, supraclavicular, or axillary adenopathy. Cardiac: Distant S1, S2 without audible murmur, rub or gallop. Point of maximum impulse (PMI) is difficult to palpate due to body habitus. Breath sounds are decreased throughout, a few coarse rhonchi. No expiratory wheeze. She is using accessory muscles to breathe. Abdomen: Obese, soft, nontender, nondistended. No hepatosplenomegaly. No masses or hernia. Extremities: No cyanosis, clubbing or edema. Skin is pale without rash, jaundice, bruising. No evidence of recent trauma. Musculoskeletal: No joint effusions. No recent fracture. Laboratory evaluation shows a white count of 19.0, hemoglobin 12.1, platelet count of 315 with 52% neutrophilia, 1% bands, lactic acid is 16.9. Troponin is less than 0.02. Blood cultures are pending times two. She has renal failure with a creatinine of 1.78. Arterial blood gas shows a pH of 6.8, pCO2 of 80, pO2 of 100.6. Chest x-ray Shows nonspecific increased interstitial edema, cardiomegaly, left lower lobe infiltrate and blunting of the left costophrenic angle. IMPRESSION: 1. Acute hypercarbic hypoxic respiratory failure, likely secondary to pneumonia with underlying COPD. The patient has very clear advanced directives, and we should honor these. The patient's family is, therefore, in agreement to convert her to comfort measures only; however, they are waiting for the remainder of the family which is in close proximity to come to the hospital to say goodbye. 2. Anion gap acidosis, likely from lactic acidosis and severe sepsis. 3. Hyperglycemia. 4. Renal failure. Overall the patient's wishes will be followed and clear wishes for comfort measures only. BRETT
[2018-05-13 09:26] VITALS: BP 94/50
[2018-05-13] MEDS ORDERED: LORazepam 2 MG/ML VIAL (J2060) IV STA (10:05)
[2018-05-13] MEDS ORDERED: SUCCINYLCHOLINE 100 MG/5 ML SYRINGE (J0330) ONE (10:53)
[2018-05-13] MEDS ORDERED: ETOMIDATE INJ 20MG/10ML VIAL ONE (10:53)
[2018-05-13] MEDS: MORPHINE 4 MG/ML 1ML VIAL/SYRINGE (J2270) IV PRN ×12 (11:09→22:49)
[2018-05-13] MEDS: LORazepam 2 MG/ML VIAL (J2060) IV PRN ×7 (11:40→22:49)
[2018-05-13] MEDS ORDERED: SCOPOLAMINE 1MG TRANSDERMAL PATCH TOP SCH (13:00)
[2018-05-14] MEDS: MORPHINE 4 MG/ML 1ML VIAL/SYRINGE (J2270) IV PRN ×10 (00:13→03:30)
[2018-05-14] MEDS: LORazepam 2 MG/ML VIAL (J2060) IV PRN ×8 (02:20→18:07)
[2018-05-14] MEDS: MORPHINE SULF IN 0.9% NACL 100 MG in APPROPRIATE DILUENT 1 EA IV SCH ×6 (03:37→14:00)
--- NOTE | 2018-05-15 23:49 | DS.PDOC ---
Discharge Summary General Date of Admission May 13, 2018 at 08:18 Date of Discharge 05/14/18 Attending Physician: CASSIDY LEDEZMA MD Discharge Summary PROCEDURES PERFORMED DURING STAY: Intubation DISCHARGE DIAGNOSES: Acute Hypercarbic and Hypoxic respiratory failure Viral respiratory infection due to Human metapneumovirus Severe COPD exacerbation caused by viral infection Interstitial pulmonary fibrosis Lactacidosis Severe respiratory and metabolic acidosis Acute kidney injury Diastolic congestive heart failure Coronary artery disease status post stent Moderate mitral regurgitation Abdominal aortic aneurysm without rupture; 4 cm with last evaluation 2015 Former smoker Morbid obesity JUDY Diabetes Hypertension Hiatal hernia with GERD Chronic low back pain L4 foraminal stenosis COMPLICATIONS/CHIEF COMPLAINT: Acute Respiratory Failure W/ Hypoxia And Hypercapn. HISTORY OF PRESENT ILLNESS: Please see history and physical HOSPITAL COURSE: Geneva is a 67-year-old smoker who presented to the hospital with respiratory distress, agonal respirations. She had been having upper respiratory symptoms over the past few days. When emergency medical services (EMS) arrived to the scene, she was blue and agonal. Saturations were in the 50% range. With bagging, she was brought up to the 70-80% range and was bagged in the emergency room. Due to the severity of her respiratory distress, she was intubated on arrival. However, on review of her advanced directives, there is clear documentation she would not want any life sustaining treatments, including cardiopulmonary resuscitation. If they are started, she wants them stopped. She does not want artificial nutrition and hydration. She wants to be kept comfortable. In accordance of her wishes patient was terminally extubated made [employer] and put on morphine infusion. Patient comfortably on 05/14/18 with all her family at her bedside. DISPOSITION: Body to be released to [facility] – [place], [place] Vital Signs/I&Os Vital Signs Date Time Temp Pulse Resp B/P (MAP) Pulse Ox O2 Delivery O2 Flow Rate FiO2 05/14/18 03:40 12 05/13/18 22:59 Room Air 05/13/18 15:57 2.0 05/13/18 10:30 94 73 05/13/18 10:15 80 05/13/18 09:26 97.2 94/50 (65) I&O- Last 24 Hours up to 6 AM 05/14/18 06:00 Intake Total 1461 ml Output Total 400 ml Balance 1061 ml Microbiology Microbiology 05/13/18 Blood Culture - Preliminary, Resulted No growth after 24 hours . All specim... 05/13/18 Blood Culture - Preliminary, Resulted No growth after 24 hours . All specim... 05/13/18 Respiratory Virus Panel (PCR) (YONG) - Final, Complete Human Metapneumovirus Discharge Medications Scheduled ([facility]) 75 Mcg Mis, 75 MCG BUC BID, (Reported) Aspirin (Aspirin 81) 81 Mg Tab, 81 MG PO DAILY, (Reported) Atenolol (Atenolol) 50 Mg Tab, 50 MG PO DAILY, (Reported) Atorvastatin Calcium (Atorvastatin Calcium) 80 Mg Tab, 80 MG PO QHS, (Reported) Clopidogrel Bisulfate (Plavix) 75 Mg Tab, 75 MG PO DAILY, (Reported) Duloxetine Hcl (Duloxetine HCl) 30 Mg Cap, 30 MG PO DAILY, (Reported) Fluticasone/Vilanterol (Breo Ellipta 200-25 Mcg/INH) 1 Inh Inh, 1 PUFF INH DAILY, (Reported) Folic Acid (Folic Acid) 800 Mcg Tab, 800 MCG PO DAILY, (Reported) Furosemide (Furosemide) 20 Mg Tab, 20 MG PO DAILY, (Reported) Gabapentin (Gabapentin) 300 Mg Cap, 600 MG PO TID, (Reported) Liraglutide (Victoza) 18 Mg/3 Ml Inj, 1.8 MG SC DAILY, (Reported) Lisinopril (Lisinopril) 10 Mg Tab, 10 MG PO DAILY, (Reported) Magnesium Oxide (Magnesium) 400 Mg Tab, 400 MG PO DAILY, (Reported) Multivitamins *[facility] STOCKED* (Thera M Plus *[facility] STOCKED*) 1 Tab Tab, 1 TAB PO DAILY, (Reported) Pantoprazole Sodium (Pantoprazole Sodium) 40 Mg Tab, 40 MG PO DAILY, (Reported) Ranitidine HCl (Ranitidine HCl) 300 Mg Tab, 1 TAB PO DAILY, (Reported) Sitagliptin (Januvia) 50 Mg Tab, 50 MG PO DAILY, (Reported) Tiotropium [place] Monohydrate (Spiriva Handihaler) 18 Mcg Cap, 18 MCG INH DAILY, (Reported) Scheduled PRN Albuterol Sulfate (Albuterol Sulfate) 2.5 Mg/0.5 Ml Neb, 2.5 MG INH Q4H PRN for SHORTNESS OF BREATH, (Reported) Docusate Sodium (Dok) 100 Mg Tab, 100 MG PO BID PRN for CONSTIPATION, (Reported) Tramadol HCl (Tramadol HCl) 50 Mg Tab, 50 MG PO TID PRN for PAIN, (Reported) Allergies Coded Allergies: No Known Allergies (Unverified , 10/10/17) CASSIDY LEDEZMA MD May 14, 2018 23:18
== END 2018-05-14 19:35 | disposition expired | DRG 871 ==
LOC: M ED 06:20 → M ED INP 08:18 → M ICU 09:20 → M MSPAV 15:42
PROVIDERS: ADMIT Internal Medicine Pulmonary Disease; ATTEND Internal Medicine Nephrology
PROC: 0BH17EZ Insertion of Endotracheal Airway into Trachea, Via Natural or Artificial Opening (ICD-10-PCS; principal; 2018-05-13)
PROC: 5A1935Z Respiratory Ventilation, Less than 24 Consecutive Hours (ICD-10-PCS; 2018-05-13)
DX: A41.9 Sepsis, unspecified organism (principal); J96.01 Acute respiratory failure with hypoxia; J96.02 Acute respiratory failure with hypercapnia; J18.9 Pneumonia, unspecified organism; J44.0 Chronic obstructive pulmonary disease with (acute) lower respiratory infection; E87.4 Mixed disorder of acid-base balance; I50.32 Chronic diastolic (congestive) heart failure; N17.9 Acute kidney failure, unspecified; R65.20 Severe sepsis without septic shock; B97.81 Human metapneumovirus as the cause of diseases classified elsewhere; R73.9 Hyperglycemia, unspecified; J06.9 Acute upper respiratory infection, unspecified; F17.210 Nicotine dependence, cigarettes, uncomplicated; I25.10 Atherosclerotic heart disease of native coronary artery without angina pectoris; Z51.5 Encounter for palliative care; Z66 Do not resuscitate; I34.1 Nonrheumatic mitral (valve) prolapse; E66.01 Morbid (severe) obesity due to excess calories; G47.33 Obstructive sleep apnea (adult) (pediatric); I11.0 Hypertensive heart disease with heart failure; E11.9 Type 2 diabetes mellitus without complications; K21.9 Gastro-esophageal reflux disease without esophagitis; E78.00 Pure hypercholesterolemia, unspecified; J84.10 Pulmonary fibrosis, unspecified; I71.4 Abdominal aortic aneurysm, without rupture; K44.9 Diaphragmatic hernia without obstruction or gangrene; M48.061 Spinal stenosis, lumbar region without neurogenic claudication; Z95.5 Presence of coronary angioplasty implant and graft; Z79.899 Other long term (current) drug therapy